=== PATIENT | male | born 1980 | race Caucasian/White ===

== ENCOUNTER 2017-02-01 08:06 | Emergency (ER) | payer OTHER ==
[2017-02-01 08:11] VITALS: BP 137/82; BMI 27.2
--- NOTE | 2017-02-01 08:47 | DR.GENAD ---
HPI - PCP Primary Care Physician: NFD - Complaint/Symptoms Chief Complaint:: "Since about Wednesday I have been feeling really sick. I have been throwing up and running a fever. I have been taking motrin and asprin for the fever, but I am still feeling really rough. I tried to go to work this morning but I had to leave." - Source History Provided: Patient - Mode of Arrival Mode of Arrival: Ambulatory - Timing Onset of Chief Complaint: 01/29/17 PMH - PMH Past Medical History: No Past Surgical History: No - Family History History of Family Medical Conditions: No - Social History Does patient currently use any type of tobacco product: Yes Have you used tobacco products in the last 12 months: Yes Type of Tobacco Use: Cigarettes Does any household member use tobacco: Yes Alcohol Use: None Do you use any recreational Drugs:: No Lives With: Family Lives Where: Home - infectious screening In the last 2 months have you had wt loss of >10#?: NO Have you had fever, night sweats or hemotysis?: No Have you traveled outside the country in the last 6 months?: No Isolation: Standard ROS - Review of Systems Constitutional: No Symptoms Reported Eyes: No Symptoms Reported ENTM: No Symptoms Reported Respiratoy: No Symptoms Reported Cardiovascular: No Symptoms Reported Gastrointestinal/Abdominal: No Symptoms Reported Genitourinary: No Symptoms Reported Neurological: No Symptoms Reported Musculoskeletal: Muscle Pain Hematologic/Lymphatic: No Symptoms Reported Endocrine: No Symptoms Reported Psychiatric: No Symptoms Reported All Other Systems: Reviewed and Negative PE - Vital Signs Vitals: Temperature 98.2 F Pulse Rate 83 Respiratory Rate 18 Blood Pressure 137/82 O2 Sat by Pulse Oximetry 98 - General Limitations: No Limitations General Appearance: Alert, In No Apparent Distress - Head Head Exam: Normal Inspection, Atraumatic - Eyes Eye exam: Normal Appearance, PERRL, EOMI - ENT ENT Exam: Normal Oropharynx External Ear Exam: Normal External Inspection TM/Canal Exam: Bilateral Normal Nose Exam: Other (rhinorrhea) Mouth Exam: Normal Inspection Throat Exam: Normal Inspection - Neck Neck Exam: Normal Inspection - Chest Chest Inspection: Normal Inspection - Respiratory Respiratory Exam: Normal Lung Sounds Bilat Respiratory Exam: Bilateral Clear to Auscultation - Cardiovascular Cardiovascular Exam: Regular Rate, Normal Rhythm - Abdominal Exam Abdominal Exam: Normal Inspection, Normal Bowel Sounds Abdominal Tenderness: negative: RUQ, RLQ, LUQ, LLQ, Epigastrium, Suprapubic, Diffuse, Mild, Moderate, Severe, Other - Extremities Extremities Exam: Normal Inspection - Back Back Exam: Normal Inspection - Neurologic Neurological Exam: Alert, Oriented X3, CN II-XII Intact - Psychiatric Psychiatric Exam: Normal Affect - Skin Skin Exam: Warm, Dry, Intact - Other Exam Other Exam: Remainder of exam wnl - Diagnosis Discharge Problem: Upper respiratory infection Qualifiers: URI type: unspecified viral URI Qualified Code(s): J06.9 - Acute upper respiratory infection, unspecified; B97.89 - Other viral agents as the cause of diseases classified elsewhere - Discharge Plan Condition: Stable - Follow ups/Referrals Follow ups/Referrals: NFD,None [Primary Care Provider] - 3 days - Instructions
[2017-02-01] MEDS ORDERED: TORADOL 60 MG VIAL IM ONE (08:51)
[2017-02-01] MEDS ORDERED: ZOFRAN TAB 4 MG PO ONE (08:52)
[2017-02-01] MEDS ORDERED: TORADOL 60 MG VIAL ONE (08:53)
[2017-02-01] MEDS ORDERED: ZOFRAN TAB 4 MG ONE (08:54)
== END 2017-02-01 09:05 | disposition home or self-care (01) ==
LOC: ER 08:26
DX: J06.9 Acute upper respiratory infection, unspecified (principal); B97.89 Other viral agents as the cause of diseases classified elsewhere
CPT/HCPCS: 96372; 99282; S0181; J1885

== ENCOUNTER 2017-07-27 07:43 | Emergency (ER) | payer OTHER ==
[2017-07-27 08:00] VITALS: BP 129/88; BMI 29.0
--- NOTE | 2017-07-27 08:31 | DR.EXTPAIN ---
HPI - Time seen Time seen: 08:20 - PCP Primary Care Physician: NFD - Complaint/Symptoms Chief Complaint Doctor Comments: Patient presents with complint of right hip pain that has been ongoing for several months. He denies trauma or history of arthritis. He also complains of dyspnea, was told that he has COPD, has not smoked in a few years. He does admits to having a PFT done in the past. He uses albeteral as needed. Has not used in several weeks. 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 Chief Complaint:: PT STATES MY RIGHT HP HURTS EVERYDAY AND I HAVE BEEN SOB AND A DOCTOR IN [place] TOLD ME I HAVE COPD.. Self Treatment fo Chief Complaint: PT STATES " MY HIP HURTS EVERY DAY FOR MONTHS " PT APPEARS TO BE IN NO DISTRESS. - Source History Provided: Patient - Mode of arrival Mode of Arrival: Ambulatory - Timing Onset of Chief Complaint: 07/13/17 PMH - PMH Past Medical History: Yes Past Medical History: COPD Past Surgical History: No - Family History History of Family Medical Conditions: Yes Family Medical History: Hypertension - Social History Does patient currently use any type of tobacco product: Yes Have you used tobacco products in the last 12 months: Yes Type of Tobacco Use: Cigarettes How many years tobacco product used: 8 Does any household member use tobacco: No Alcohol Use: None Do you use any recreational Drugs:: No Lives With: Family Lives Where: Home - infectious screening In the last 2 months have you had wt loss of >10#?: NO Have you had fever, night sweats or hemotysis?: No Have you traveled outside the country in the last 6 months?: No Isolation: Standard ROS - Review of Systems Eyes: No Symptoms Reported ENTM: No Symptoms Reported Respiratoy: Short of Breath Cardiovascular: No Symptoms Reported Gastrointestinal/Abdominal: No Symptoms Reported Genitourinary: No Symptoms Reported Neurological: No Symptoms Reported Musculoskeletal: See HPI, Hip Integumentary: No Symptoms Reported Hematologic/Lymphatic: No Symptoms Reported Endocrine: No Symptoms Reported Psychiatric: No Symptoms Reported All Other Systems: Reviewed and Negative PE - Vital Signs Vitals: Temperature 97.7 F Pulse Rate 82 Respiratory Rate 20 Blood Pressure 129/88 O2 Sat by Pulse Oximetry 99 - General Limitations: No Limitations General Appearance: Alert, In No Apparent Distress - Head Head Exam: Normal Inspection, Atraumatic - Eyes Eye exam: Normal Appearance, PERRL, EOMI - ENT ENT Exam: Normal Exam - Neck Neck Exam: Normal Inspection, Full ROM - Chest Chest Inspection: Normal Inspection, Symmetric Chest Wall Rise - Respiratory Respiratory Exam: Normal Lung Sounds Bilat Respiratory Exam: Bilateral Clear to Auscultation - Cardiovascular Cardiovascular Exam: Regular Rate, Normal Rhythm - Abdominal Exam Abdominal Exam: Normal Inspection, Normal Bowel Sounds Abdominal Tenderness: RUQ, RLQ, LUQ, LLQ - Extremities Extremities Exam: Normal Inspection, Full ROM - Upper Extremities Shoulder Exam: Normal Inspection Arm Exam: Normal Inspection Elbow Exam: Normal Inspection Forearm Exam: Normal Inspection Hand Exam: Normal Inspection Neuromotor Exam: Normal Exam Neurosensory Exam: Normal Exam Hand Tendon Exam: Flexor Digitorium Profundus (Location) - Lower Extremities Hip/Pelvis Exam: Normal Inspection, Tenderness (right hip joint with flexion ASIS) Upper Leg Exam: Normal Inspection Knee Exam: Normal Inspection Lower Leg Exam: Normal Inspection Ankle Exam: Normal Inspection Foot/Toe Exam: Normal Inspection Neurovascular/Tendon Exam: Normal Capillary Refill Gait Exam: Observed and Normal, Not Tested/Not Observed - Back Back Exam: Normal Inspection, Full ROM - Neurological Neurological Exam: Alert, Oriented X3, CN II-XII Intact - Psychiatric Psychiatric Exam: Normal Affect, Normal Mood - Skin Skin Exam: Warm, Dry, Intact Type of Lesion: Rash Distribution: Generalized Course - Reevaluation 1st: Unchanged ROR - Labs Reviewed Result Diagrams: 07/27/17 08:33 Laboratory: WBC 7.5 X10^3/uL (3.6-10.0) 07/27/17 08:33 RBC 4.91 X10^6/uL (4.7-6.0) 07/27/17 08:33 Hgb 15.8 g/dL (13.5-18.0) 07/27/17 08:33 Hct 45.4 % (42.0-54.0) 07/27/17 08:33 MCV 92.4 fL (80.0-100.0) 07/27/17 08:33 MCH 32.1 pg (27.0-34.0) 07/27/17 08:33 MCHC 34.8 g/dL (33.0-35.0) 07/27/17 08:33 RDW 13.9 % (11.6-16.5) 07/27/17 08:33 Plt Count 277 X10^3/uL (150.0-450.0) 07/27/17 08:33 MPV 7.7 fL (7.4-11.0) 07/27/17 08:33 Neut % (Auto) 50.7 % (42.0-75.0) 07/27/17 08:33 Lymph % (Auto) 37.9 % (21.0-51.0) 07/27/17 08:33 [place] % (Auto) 6.8 % (0.0-13.0) 07/27/17 08:33 Eos % (Auto) 3.1 % (0.9-2.9) H 07/27/17 08:33 Baso % (Auto) 1.5 % (0.2-1.0) H 07/27/17 08:33 Neut # (Auto) 3.8 x10^3/uL (2.2-4.8) 07/27/17 08:33 Lymph # (Auto) 2.8 X10^3/uL (1.3-2.9) 07/27/17 08:33 [place] # (Auto) 0.5 x10^3/uL (0.3-0.8) 07/27/17 08:33 Eos # (Auto) 0.2 x10^3/uL (0.0-0.2) 07/27/17 08:33 Baso # (Auto) 0.1 X10^3/uL (0.0-0.1) 07/27/17 08:33 Absolute Nucleated RBC 0.1 /100WBC 07/27/17 08:33 C-Reactive Protein 1.60 mg/L (0-3.0) 07/27/17 08:33 - XRAY XRAY Interpreted by: Radiologist (Chest: The heart is within normal limits in size. The bev are normal. The lungs are well inflated and free of acute infiltrates. No pleural effusions are identified. The bony thorax is unremarkable. Right Hip: The pelvic bones and SI joints are intact. The right hip joint is intact. No joint erosions are noted. No fracture,lytic or blastic lesion is identified.) - Diagnosis Discharge Problem: History of COPD, Pain of right hip - Discharge Plan Condition: Stable - Follow ups/Referrals Follow ups/Referrals: NFD,None [Primary Care Provider] - 3 days - Instructions
[2017-07-27 08:40] LABS: BASOPHILS # (AUTO) 0.1 X10^3/uL (0.0-0.1); BASOPHILS % (AUTO) 1.5 % (0.2-1.0); EOSINOPHILS # (AUTO) 0.2 x10^3/uL (0.0-0.2); EOSINOPHILS % (AUTO) 3.1 % (0.9-2.9); HEMATOCRIT 45.4 % (42.0-54.0); HEMOGLOBIN 15.8 g/dL (13.5-18.0); LYMPHOCYTES # (AUTO) 2.8 X10^3/uL (1.3-2.9); LYMPHOCYTES % (AUTO) 37.9 % (21.0-51.0); MEAN CORPUSCULAR HEMOGLOBIN 32.1 pg (27.0-34.0); MEAN CORPUSCULAR HGB CONC 34.8 g/dL (33.0-35.0); MEAN CORPUSCULAR VOLUME 92.4 fL (80.0-100.0); MEAN PLATELET VOLUME 7.7 fL (7.4-11.0); MONOCYTES # (AUTO) 0.5 x10^3/uL (0.3-0.8); MONOCYTES % (AUTO) 6.8 % (0.0-13.0); NEUTROPHILS # (AUTO) 3.8 x10^3/uL (2.2-4.8); NEUTROPHILS % (AUTO) 50.7 % (42.0-75.0); PLATELET COUNT 277 X10^3/uL (150.0-450.0); RED BLOOD COUNT 4.91 X10^6/uL (4.7-6.0); RED CELL DISTRIBUTION WIDTH 13.9 % (11.6-16.5); WHITE BLOOD COUNT 7.5 X10^3/uL (3.6-10.0)
--- NOTE | 2017-07-27 08:50 | RAD ---
HISTORY: Nontraumatic right hip pain Study: Right hip AP, frog-leg, AP pelvis Comparison: None Findings: The pelvic bones and SI joints are intact. The right hip joint is intact. No joint erosions are noted . No fracture, lytic, or blastic lesion is identified. IMPRESSION: No significant abnormality right hip Reported By:
--- NOTE | 2017-07-27 08:53 | RAD ---
HISTORY: Chest pain, shortness of breath Study: Chest PA and lateral Comparison: None Findings: The heart is within normal limits in size. The bev are normal. The lungs are well inflated and free of acute infiltrates. No pleural effusions are identified. The bony thorax is unremarkable. IMPRESSION: No significant abnormality identified Reported By:
== END 2017-07-27 09:14 | disposition home or self-care (01) ==
LOC: ER 08:01
DX: M25.551 Pain in right hip (principal); Z87.09 Personal history of other diseases of the respiratory system
CPT/HCPCS: 36415; 71046; 73501; 85025; 86140; 99282

== ENCOUNTER 2019-04-26 14:01 | Inpatient (IN) ==
[2019-04-26 14:30] VITALS: BMI 29.4
[2019-04-26 17:52] LABS: BASOPHILS # (AUTO) 0.1 X10^3/uL (0.0-0.1); EOSINOPHILS # (AUTO) 0.1 x10^3/uL (0.0-0.2); EOSINOPHILS % (AUTO) 0.6 % (0.9-2.9); HEMATOCRIT 46.1 % (42.0-54.0); HEMOGLOBIN 15.5 g/dL (13.5-18.0); LYMPHOCYTES # (AUTO) 2.3 X10^3/uL (1.3-2.9); LYMPHOCYTES % (AUTO) 17.1 % (21.0-51.0); MEAN CORPUSCULAR HEMOGLOBIN 31.9 pg (27.0-34.0); MEAN CORPUSCULAR HGB CONC 33.7 g/dL (33.0-35.0); MEAN CORPUSCULAR VOLUME 94.5 fL (80.0-100.0); MONOCYTES # (AUTO) 0.9 x10^3/uL (0.3-0.8); MONOCYTES % (AUTO) 6.7 % (0.0-13.0); NEUTROPHILS # (AUTO) 9.9 x10^3/uL (2.2-4.8); NEUTROPHILS % (AUTO) 74.6 % (42.0-75.0); PLATELET COUNT 245 X10^3/uL (150.0-450.0); RED BLOOD COUNT 4.88 X10^6/uL (4.7-6.0); RED CELL DISTRIBUTION WIDTH 13.1 % (11.6-16.5); WHITE BLOOD COUNT 13.2 X10^3/uL (3.6-10.0)
[2019-04-26 18:06] LABS: ALANINE AMINOTRANSFERASE 27 Units/L (12-78); ALKALINE PHOSPHATASE 83 Units/L (46-116); ASPARTATE AMINO TRANSFERASE 15 Units/L (15-37); BLOOD UREA NITROGEN 19 mg/dL (7-18); CALCIUM 8.8 mg/dL (8.5-10.1); CARBON DIOXIDE 29.4 mmol/L (21-32); CHLORIDE 103 mmol/L (98-107); CREATININE 1.19 mg/dL (0.70-1.30); SODIUM 140 mmol/L (136-145); eGFR NON BLACK RACES > 60 (>60)
--- NOTE | 2019-04-26 19:59 | CT ---
ABDOMEN/PELVIS WITH CONHISTORY: Diffuse abdominal painComparison:NoneTechnique:Multiple axial images of the abdomen and pelvis were obtained from the lung bases to the pubic symphysis following the administration of IV contrast as well as oral contrast . Dose reduction techniques including Automated Exposure Control (AEC) and adjustment of mA and kV were utlized.Findings:The heart is normal in size. There is no pericardial effusion. Lung bases are clear without focal consolidation, pleural effusion or pneumothorax.Liver and spleen are normal in size, enhancement characteristics and contour. No focal lesions. The portal vein is patent. No ductal dilitation. Gallbladder is present. No calcified gallstones or gallbladder wall thickening. The pancreas is unremarkable. Adrenal glands are normal. Kidneys enhance symmetrically without hydronephrosis or nephrolithiasis.Focal formation of the descending colon with extraluminal air and extensive fat stranding. Best seen on series for image 57. There are scattered diverticula in this region. No abnormal appearing mesenteric or retroperitoneal lymph nodes. . No free fluid or fluid collections.The bladder is normal in appearance. Prostate unremarkable. No free fluid or abnormal pelvic lymph nodes.No aggressive osseous lesions.IMPRESSION:1. Acute diverticulitis with contained perforation of the descending colon. Recommend surgical consultation.Electronically signed by: CORINNE EASTMAN (Apr 26, 2019 19:58:16)
[2019-04-26] MEDS ORDERED: FIORICET TAB PO ONE ×2 (20:02→20:09)
--- NOTE | 2019-04-26 20:03 | DR.ABDMALE ---
HPI Time seen Time Seen by Provider: 04/26/19 17:13 PCP Primary Care Physician: NFD Complaint Chief Complaint Doctors Comments: A 38 y/o with LLQ abdominal pain since yesterday. It just hurts, he states. He's not had nausea/vomiting or fever. The pain is constant mostly with exacerbation sometimes. Chief Complaint:: STATES HE IS HAVING LOWER ABDOMINAL PAIN THAT GOES ALL THE WAY ACROSS HIS ABDOMEN. STATES HE HAD A FEVER LAST NIGHT UNSURE OF HOW HIGH. STATES HE HAS BEEN HAVING HEADACHES. STATES HE BLOOD IN HIS STOOL LAST MONTH. Self Treatment fo Chief Complaint: TYLENOL 2 TABS LAST DOSE THIS AM. Reviewed Nurses Notes Review: Yes Mode of arrival Mode of Arrival: Ambulatory Timing Onset of Chief Complaint: 04/25/19 Location Location: LLQ Severity Severity: Mild and Moderate Context Onset: Gradually Modifying factors Worsening Factors: Nothing Associated signs and symptoms Associated Signs and Symptoms: None PMH PMH Past Medical History: No Past Medical History: COPD Past Surgical History: No Family History History of Family Medical Conditions: Yes Family Medical History: Hypertension Social History Does patient currently use any type of tobacco product: Yes Have you used tobacco products in the last 12 months: Yes Type of Tobacco Use: Cigarettes Does any household member use tobacco: No Alcohol Use: None Do you use any recreational Drugs:: No Lives With: Family and Significant Other Lives Where: Home infectious screening In the last 2 months have you had wt loss of >10#?: NO Have you had fever, night sweats or hemotysis?: No Have you traveled outside the country in the last 6 months?: No Isolation: Standard ROS Review of Systems Constitutional: No Symptoms Reported Eyes: No Symptoms Reported ENTM: No Symptoms Reported Respiratoy: No Symptoms Reported Cardiovascular: No Symptoms Reported Gastrointestinal/Abdominal: Abdominal Pain Genitourinary: No Symptoms Reported Neurological: No Symptoms Reported Musculoskeletal: No Symptoms Reported Integumentary: No Symptoms Reported Hematologic/Lymphatic: No Symptoms Reported Endocrine: No Symptoms Reported Psychiatric: No Symptoms Reported PE Vital Signs Vital Signs: Temp Pulse Resp BP Pulse Ox 04/26/19 20:11 18 04/26/19 14:24 99.1 F 100 H 18 137/80 97 07/27/17 07:56 129/88 General Limitations: No Limitations General Appearance: Alert and In No Apparent Distress Head Head Exam: Normal Inspection and Atraumatic Eyes Eye exam: Normal Appearance and EOMI ENT ENT Exam: Normal Exam, Normal Oropharynx and Mucous Membranes Moist Neck Neck Exam: Normal Inspection, Full ROM and Trachea Midline Chest Chest Inspection: Normal Inspection and Symmetric Chest Wall Rise Respiratory Respiratory Exam: Normal Lung Sounds Bilat Cardiovascular Cardiovascular Exam: Regular Rate, Normal Rhythm, +S1 and +S2 Abdominal Exam Abdominal Exam: Normal Inspection, Normal Bowel Sounds, Soft and Tenderness; negative Distention, Guarding, Rebound, Rigidity, Dimnished Bowel Sounds, Hyperactive Bowel Sounds, Hypoactive Bowel Sounds, Organomegaly, Trauma, Incision, Ascites, Mass, Bruit, Pulsatile Mass and Hernia Abdominal Tenderness: LLQ Rectal Rectal Exam: Deferred Back Back Exam: Normal Inspection and Full ROM Extremeties Extremities Exam: Normal Inspection and Full ROM Exam: Male: Deferred Neurologic Neurological Exam: Alert and Oriented X3 Psychiatric Psychiatric Exam: Normal Affect and Normal Mood Skin Skin Exam: Dry and Normal Color COURSE Treatment Treatment: His presentation and findings were discussed with Dr. Vides (surgeon), he recommended placing into Obs. status. I then informed the on-call hospitalist. Reevaluation 1st: Improved Education/Counseling Education/Counseling: Patient, Family, Education and Counseling Educated On: Treatment, Diagnosis, Prognosis and Needs for Follow Up ROR Labs Reviewed Laboratory Results Reviewed?: Yes Result Diagrams: 04/26/19 17:32 04/26/19 17:32 Laboratory: WBC 13.2 X10^3/uL (3.6-10.0) H 04/26/19 17:32 RBC 4.88 X10^6/uL (4.7-6.0) 04/26/19 17:32 Hgb 15.5 g/dL (13.5-18.0) 04/26/19 17:32 Hct 46.1 % (42.0-54.0) 04/26/19 17:32 MCV 94.5 fL (80.0-100.0) 04/26/19 17:32 MCH 31.9 pg (27.0-34.0) 04/26/19 17:32 MCHC 33.7 g/dL (33.0-35.0) 04/26/19 17:32 RDW 13.1 % (11.6-16.5) 04/26/19 17:32 Plt Count 245 X10^3/uL (150.0-450.0) 04/26/19 17:32 MPV 8.0 fL (7.4-11.0) 04/26/19 17:32 Neut % (Auto) 74.6 % (42.0-75.0) 04/26/19 17:32 Lymph % (Auto) 17.1 % (21.0-51.0) L 04/26/19 17:32 [place] % (Auto) 6.7 % (0.0-13.0) 04/26/19 17:32 Eos % (Auto) 0.6 % (0.9-2.9) L 04/26/19 17:32 Baso % (Auto) 1.0 % (0.2-1.0) 04/26/19 17:32 Neut # (Auto) 9.9 x10^3/uL (2.2-4.8) H 04/26/19 17:32 Lymph # (Auto) 2.3 X10^3/uL (1.3-2.9) 04/26/19 17:32 [place] # (Auto) 0.9 x10^3/uL (0.3-0.8) H 04/26/19 17:32 Eos # (Auto) 0.1 x10^3/uL (0.0-0.2) 04/26/19 17:32 Baso # (Auto) 0.1 X10^3/uL (0.0-0.1) 04/26/19 17:32 Absolute Nucleated RBC 0.0 /100WBC 04/26/19 17:32 Sodium 140 mmol/L (136-145) 04/26/19 17:32 Corrected Sodium TNP 04/26/19 17:32 Potassium 4.1 mmol/L (3.5-5.1) 04/26/19 17:32 Chloride 103 mmol/L (98-107) 04/26/19 17:32 Carbon Dioxide 29.4 mmol/L (21-32) 04/26/19 17:32 BUN 19 mg/dL (7-18) H 04/26/19 17:32 Creatinine 1.19 mg/dL (0.70-1.30) 04/26/19 17:32 Est GFR (MDRD) Af Amer > 60 (>60) 04/26/19 17:32 Est GFR (MDRD) Non-Af > 60 (>60) 04/26/19 17:32 Glucose 95 mg/dL (65-99) 04/26/19 17:32 Calcium 8.8 mg/dL (8.5-10.1) 04/26/19 17:32 Corrected Calcium TNP 04/26/19 17:32 Total Bilirubin 0.70 mg/dL (0.2-1.0) 04/26/19 17:32 AST 15 Units/L (15-37) 04/26/19 17:32 ALT 27 Units/L (12-78) 04/26/19 17:32 Alkaline Phosphatase 83 Units/L (46-116) 04/26/19 17:32 Total Protein 8.0 g/dL (6.4-8.2) 04/26/19 17:32 Albumin 4.0 g/dL (3.4-5.0) 04/26/19 17:32 Globulin 4.0 g/dL (2.5-4.5) 04/26/19 17:32 Albumin/Globulin Ratio 1.0 Ratio (1.1-2.1) L 04/26/19 17:32 Other Results Comments: Name: CATRINA PRUITT Acc#: [id number] : 1980 Sex: M Location: ER Order Number(s): [id number] Procedure(s):ABDOMEN/PELVIS WITH CON Ordering Physician: SWATHI MANZANARES Primary Care: NFDGinger Service Date: 04/26/19 Service Time: 1715 ABDOMEN/PELVIS WITH CON HISTORY: Diffuse abdominal pain Comparison:None Technique: Multiple axial images of the abdomen and pelvis were obtained from the lung bases to the pubic symphysis following the administration of IV contrast as well as oral contrast . Dose reduction techniques including Automated Exposure Control (AEC) and adjustment of mA and kV were utlized. Findings: The heart is normal in size. There is no pericardial effusion. Lung bases are clear without focal consolidation, pleural effusion or pneumothorax. Liver and spleen are normal in size, enhancement characteristics and contour. No focal lesions. The portal vein is patent. No ductal dilitation. Gallbladder is present. No calcified gallstones or gallbladder wall thickening. The pancreas is unremarkable. Adrenal glands are normal. Kidneys enhance symmetrically without hydronephrosis or nephrolithiasis. Focal formation of the descending colon with extraluminal air and extensive fat stranding. Best seen on series for image 57. There are scattered diverticula in this region. No abnormal appearing mesenteric or retroperitoneal lymph nodes. . No free fluid or fluid collections. The bladder is normal in appearance. Prostate unremarkable. No free fluid or abnormal pelvic lymph nodes. No aggressive osseous lesions. IMPRESSION: 1. Acute diverticulitis with contained perforation of the descending colon. Recommend surgical consultation. Opioid Opioid Risk Tool Age (Raza box if 16-45): Yes Total: 1 Total Score Risk Category: Low Risk Copyright: [facility] predicting aberrant behaviors Diagnosis Discharge Problem: Diverticulitis of colon with perforation Qualifiers: Diverticulitis bleeding: without bleeding Qualified Code(s): K57.20 - Divert iculitis of large intestine with perforation and abscess without bleeding Headache Qualifiers: Headache type: unspecified Headache chronicity pattern: acute headache Intractability: not intractable Qualified Code(s): R51 - Headache
[2019-04-26] MEDS ORDERED: ZOFRAN INJ 4 MG VIAL IVP PRN (20:49)
[2019-04-26] MEDS ORDERED: FLAGYL IV PREMIX 500 MG BAG 500 MG/100 ML BAG IV SCH (21:00)
[2019-04-26] MEDS ORDERED: NS 1000 ML 1,000 ML ONE (21:07)
[2019-04-26] MEDS ORDERED: CIPRO IV 400 MG PREMIX* 400 MG/200 ML IV.SOLN. IV ONE (21:07)
[2019-04-26] MEDS: CIPRO IV 400 MG PREMIX* 400 MG/200 ML IV.SOLN. IV SCH (21:16)
[2019-04-26] MEDS ORDERED: NS 1000 ML 1,000 ML IV ONE (21:17)
[2019-04-26] MEDS: NS 1000 ML 1,000 ML IV SCH (21:17)
[2019-04-26] MEDS ORDERED: PREVNAR 13 IM ONE (22:31)
[2019-04-26] MEDS: FLAGYL IV PREMIX 500 MG BAG 500 MG/100 ML BAG IV SCH (23:06)
[2019-04-26] MEDS: MORPHINE SULFATE INJ 2 MG INJ IVP PRN (23:36)
[2019-04-27] MEDS: NS 1000 ML 1,000 ML IV SCH (05:56)
[2019-04-27 05:57] LABS: BASOPHILS # (AUTO) 0.1 X10^3/uL (0.0-0.1); BASOPHILS % (AUTO) 0.7 % (0.2-1.0); EOSINOPHILS # (AUTO) 0.1 x10^3/uL (0.0-0.2); EOSINOPHILS % (AUTO) 0.6 % (0.9-2.9); HEMATOCRIT 40.5 % (42.0-54.0); HEMOGLOBIN 13.8 g/dL (13.5-18.0); LYMPHOCYTES # (AUTO) 1.7 X10^3/uL (1.3-2.9); LYMPHOCYTES % (AUTO) 14.8 % (21.0-51.0); MONOCYTES # (AUTO) 0.8 x10^3/uL (0.3-0.8); MONOCYTES % (AUTO) 6.8 % (0.0-13.0); NEUTROPHILS # (AUTO) 8.8 x10^3/uL (2.2-4.8); NEUTROPHILS % (AUTO) 77.1 % (42.0-75.0); PLATELET COUNT 212 X10^3/uL (150.0-450.0); RED BLOOD COUNT 4.31 X10^6/uL (4.7-6.0); WHITE BLOOD COUNT 11.4 X10^3/uL (3.6-10.0)
[2019-04-27 06:09] LABS: ALANINE AMINOTRANSFERASE 21 Units/L (12-78); ALBUMIN 3.2 g/dL (3.4-5.0); ALKALINE PHOSPHATASE 71 Units/L (46-116); ASPARTATE AMINO TRANSFERASE 12 Units/L (15-37); BLOOD UREA NITROGEN 12 mg/dL (7-18); CALCIUM 8.2 mg/dL (8.5-10.1); CARBON DIOXIDE 26.8 mmol/L (21-32); CHLORIDE 104 mmol/L (98-107); COR CA(FOR HYPOALB) 8.8 mg/dL (8.5-10.1); CREATININE 1.26 mg/dL (0.70-1.30); SODIUM 139 mmol/L (136-145); TOTAL PROTEIN 6.8 g/dL (6.4-8.2); eGFR NON BLACK RACES > 60 (>60)
[2019-04-27] MEDS: MORPHINE SULFATE INJ 2 MG INJ IVP PRN ×3 (06:30→20:22)
[2019-04-27 06:32] LABS: BILIRUBIN,URINE NEGATIVE (NEGATIVE); BLOOD/HEMOGLOBIN,URINE 2+ (NEGATIVE); GLUCOSE, URINE NEGATIVE (NEGATIVE); KETONES,URINE 3+ (NEGATIVE); LEUKOCYTE ESTERASE ,URINE NEGATIVE (NEGATIVE); NITRITES,URINE NEGATIVE (NEGATIVE); PROTEIN,URINE 2+ (NEGATIVE); UROBILINOGEN,URINE 2+ (NORMAL)
[2019-04-27 06:36] LABS: APPEARANCE,URINE HAZY (CLEAR); COLOR,URINE YELLOW (YELLOW)
[2019-04-27] MEDS: FLAGYL IV PREMIX 500 MG BAG 500 MG/100 ML BAG IV SCH ×3 (06:36→21:41)
[2019-04-27 06:37] LABS: BACTERIA,URINE NEGATIVE /HPF (NEGATIVE); MUCUS,URINE FEW /HPF (NEGATIVE); RBC,URINE 0-2 /HPF (0-3); SQUAMOUS EPITHELIAL CELL,UR NEGATIVE /HPF (NEGATIVE)
--- NOTE | 2019-04-27 08:26 | DR.H&P ---
H&P History & Physical for Day of: H&P Date: 04/27/19 Chief Complaint Chief Complaint: abdominal pain Allergies Allergies Allergy/AdvReac Type Severity Reaction Status Date / Time penicillin G Allergy Verified 07/27/17 07:56 History of Present Illness History of Present Illness: Mr. Fowler is a 38y/o male with no pertinent PMH presented yesterday with diffuse abdominal pain that started Jorge night. He states the pain started in the LLQ and then spread across. He denies N/V or fever. He had some diarrhea yesterday after the contrast but has resolved. He has no hx of any abdominal surgeries. No prev hx of diverticulosis. ER work-up - CTAP: acute diverticulitis with contained perforation of descending colon, surgery consult pending Past Medical History Past Medical History: COPD Additional Medical History: Tobacco use Past Surgical History Surgical History: No History Family History Family Medical History: Diabetes Mellitus and Hypertension Social History Does patient currently use any type of tobacco product: Yes Have you used tobacco products in the last 12 months: Yes Type of Tobacco Use: None How many years tobacco product used: 10 Does any household member use tobacco: No Alcohol Use: None Drug Use: None Medications Home Medications: penicillin G Allergy (Verified 07/27/17 07:56) CONTINUE taking the following medications NK 04/26/19 [History] Labs Result Diagrams: 04/27/19 05:38 04/27/19 05:38 Labs: Laboratory WBC 11.4 X10^3/uL (3.6-10.0) H 04/27/19 05:38 RBC 4.31 X10^6/uL (4.7-6.0) L 04/27/19 05:38 Hgb 13.8 g/dL (13.5-18.0) 04/27/19 05:38 Hct 40.5 % (42.0-54.0) L 04/27/19 05:38 MCV 94.0 fL (80.0-100.0) 04/27/19 05:38 MCH 32.0 pg (27.0-34.0) 04/27/19 05:38 MCHC 34.0 g/dL (33.0-35.0) 04/27/19 05:38 RDW 13.0 % (11.6-16.5) 04/27/19 05:38 Plt Count 212 X10^3/uL (150.0-450.0) 04/27/19 05:38 MPV 8.0 fL (7.4-11.0) 04/27/19 05:38 Neut % (Auto) 77.1 % (42.0-75.0) H 04/27/19 05:38 Lymph % (Auto) 14.8 % (21.0-51.0) L 04/27/19 05:38 [place] % (Auto) 6.8 % (0.0-13.0) 04/27/19 05:38 Eos % (Auto) 0.6 % (0.9-2.9) L 04/27/19 05:38 Baso % (Auto) 0.7 % (0.2-1.0) 04/27/19 05:38 Neut # (Auto) 8.8 x10^3/uL (2.2-4.8) H 04/27/19 05:38 Lymph # (Auto) 1.7 X10^3/uL (1.3-2.9) 04/27/19 05:38 [place] # (Auto) 0.8 x10^3/uL (0.3-0.8) 04/27/19 05:38 Eos # (Auto) 0.1 x10^3/uL (0.0-0.2) 04/27/19 05:38 Baso # (Auto) 0.1 X10^3/uL (0.0-0.1) 04/27/19 05:38 Absolute Nucleated RBC 0.0 /100WBC 04/27/19 05:38 Sodium 139 mmol/L (136-145) 04/27/19 05:38 Corrected Sodium TNP 04/27/19 05:38 Potassium 3.6 mmol/L (3.5-5.1) 04/27/19 05:38 Chloride 104 mmol/L (98-107) 04/27/19 05:38 Carbon Dioxide 26.8 mmol/L (21-32) 04/27/19 05:38 BUN 12 mg/dL (7-18) 04/27/19 05:38 Creatinine 1.26 mg/dL (0.70-1.30) 04/27/19 05:38 Est GFR (MDRD) Af Amer > 60 (>60) 04/27/19 05:38 Est GFR (MDRD) Non-Af > 60 (>60) 04/27/19 05:38 Glucose 104 mg/dL (65-99) H 04/27/19 05:38 Calcium 8.2 mg/dL (8.5-10.1) L 04/27/19 05:38 Corrected Calcium 8.8 mg/dL (8.5-10.1) 04/27/19 05:38 Total Bilirubin 0.90 mg/dL (0.2-1.0) 04/27/19 05:38 AST 12 Units/L (15-37) L 04/27/19 05:38 ALT 21 Units/L (12-78) 04/27/19 05:38 Alkaline Phosphatase 71 Units/L (46-116) 04/27/19 05:38 Total Protein 6.8 g/dL (6.4-8.2) 04/27/19 05:38 Albumin 3.2 g/dL (3.4-5.0) L 04/27/19 05:38 Globulin 3.6 g/dL (2.5-4.5) 04/27/19 05:38 Albumin/Globulin Ratio 0.9 Ratio (1.1-2.1) L 04/27/19 05:38 Specimen Type Clean catch urine 04/27/19 06:00 Urine Color Yellow (YELLOW) 04/27/19 06:00 Urine Appearance Hazy (CLEAR) 04/27/19 06:00 Urine pH 6.0 (5.0 - 8.0) 04/27/19 06:00 Ur Specific [place] 1.010 (1.000-1.030) 04/27/19 06:00 Urine Protein 2+ (NEGATIVE) 04/27/19 06:00 Urine Glucose (UA) Negative (NEGATIVE) 04/27/19 06:00 Urine Ketones 3+ (NEGATIVE) 04/27/19 06:00 Urine Occult Blood 2+ (NEGATIVE) 04/27/19 06:00 Urine Nitrite Negative (NEGATIVE) 04/27/19 06:00 Urine Bilirubin Negative (NEGATIVE) 04/27/19 06:00 Urine Urobilinogen 2+ (NORMAL) 04/27/19 06:00 Ur Leukocyte Esterase Negative (NEGATIVE) 04/27/19 06:00 Urine RBC 0-2 /HPF (0-3) 04/27/19 06:00 Urine WBC None seen /HPF (0-5) 04/27/19 06:00 Ur Squamous Epith Cells Negative /HPF (NEGATIVE) 04/27/19 06:00 Urine Bacteria Negative /HPF (NEGATIVE) 04/27/19 06:00 Urine Mucus Few /HPF (NEGATIVE) 04/27/19 06:00 Ur Culture Indicated? No/not indicated 04/27/19 06:00 Review of Systems Constitutional: No Symptoms Reported Eyes: No Symptoms Reported ENT: No Symptoms Reported Respiratory: No Symptoms Reported Cardiovascular: No Symptoms Reported Gastrointestinal: Abdominal Pain and Diarrhea; denies Nausea, Vomiting and Constipation Genitourinary: No Symptoms Reported Musculoskeletal: No Symptoms Reported Skin: No Symptoms Reported Neurological: No Symptoms Reported Physical Exam Vital Signs: Temperature 99 F Pulse Rate [Brachial] 101 Pulse Rate 100 Respiratory Rate 18 Blood Pressure [Right Arm] 117/56 Blood Pressure [Left Arm] 139/83 Blood Pressure 137/80 O2 Sat by Pulse Oximetry 96 Oriented: Normal Eyes: Normal Ear: Normal Nose: Normal Throat: Normal Respiratory: Clear Throughout Cardiovascular: Normal Auscultation: Bowel Sounds: Increased Tenderness: LLQ, Epigastric and Mild Skin: Normal Musculoskeletal: Normal Psychiatric: Normal Mood Description: Calm Affect: Normal Speech Pattern: Clear and Appropriate Assessment/Plan (1) Diverticulitis of colon with perforation: Qualifiers: Diverticulitis bleeding: without bleeding Qualified Code(s): K57.20 - Diverticulitis of large intestine with perforation and abscess without bleeding Narrative Support Text: CTAP: acute diverticulitis with contained perforation of descending colon. Status: Acute Plan: continue Cipro and Flagyl, IVF and pain control Surgery consult pending Continue NPO status Review H&P Reviewed: Yes Patient was examined?: Yes
[2019-04-27] MEDS: CIPRO IV 400 MG PREMIX* 400 MG/200 ML IV.SOLN. IV SCH (08:44)
--- NOTE | 2019-04-27 10:31 | DR.PROGNOT ---
Hospital Progress Notes - Progress Note for Day of: Progress Note Date: 04/27/19 - Chief Complaint Chief Complaint: abdominal pain is less this am . no nausea or vomiting . having low grade fever . WBC 11.4. BUN, Creatinin normal . - Past Medical Family Social History Past Med/Fam/Surg Hx: No changes since H&P Allergies: Allergies penicillin G Allergy (Verified 07/27/17 07:56) - Review Of Systems ROS: No change since H&P - Vital Signs Vital Signs: Temperature 99 F Pulse Rate [Brachial] 100 Pulse Rate 100 Respiratory Rate 18 Blood Pressure [Right Arm] 99/69 Blood Pressure [Left Arm] 139/83 Blood Pressure 137/80 O2 Sat by Pulse Oximetry 95 - Physical Exam Oriented: Normal Eyes: Normal Ear: Normal Nose: Normal Throat: Normal Cardiovascular: Normal GI:Auscultation: Decreased GI: Tenderness: LLQ, Moderate (soft abdomen with moderate LLQ tenderness with mild rebound . ) Skin: Normal Musculoskeletal: Normal Psychiatric: Normal Mood Description: Calm Affect: Normal Speech Pattern: Clear, Appropriate - Laboratory and Diagnostics Result Diagrams: 04/27/19 05:38 04/27/19 05:38 Labs: Laboratory WBC 11.4 X10^3/uL (3.6-10.0) H 04/27/19 05:38 RBC 4.31 X10^6/uL (4.7-6.0) L 04/27/19 05:38 Hgb 13.8 g/dL (13.5-18.0) 04/27/19 05:38 Hct 40.5 % (42.0-54.0) L 04/27/19 05:38 MCV 94.0 fL (80.0-100.0) 04/27/19 05:38 MCH 32.0 pg (27.0-34.0) 04/27/19 05:38 MCHC 34.0 g/dL (33.0-35.0) 04/27/19 05:38 RDW 13.0 % (11.6-16.5) 04/27/19 05:38 Plt Count 212 X10^3/uL (150.0-450.0) 04/27/19 05:38 MPV 8.0 fL (7.4-11.0) 04/27/19 05:38 Neut % (Auto) 77.1 % (42.0-75.0) H 04/27/19 05:38 Lymph % (Auto) 14.8 % (21.0-51.0) L 04/27/19 05:38 [place] % (Auto) 6.8 % (0.0-13.0) 04/27/19 05:38 Eos % (Auto) 0.6 % (0.9-2.9) L 04/27/19 05:38 Baso % (Auto) 0.7 % (0.2-1.0) 04/27/19 05:38 Neut # (Auto) 8.8 x10^3/uL (2.2-4.8) H 04/27/19 05:38 Lymph # (Auto) 1.7 X10^3/uL (1.3-2.9) 04/27/19 05:38 [place] # (Auto) 0.8 x10^3/uL (0.3-0.8) 04/27/19 05:38 Eos # (Auto) 0.1 x10^3/uL (0.0-0.2) 04/27/19 05:38 Baso # (Auto) 0.1 X10^3/uL (0.0-0.1) 04/27/19 05:38 Absolute Nucleated RBC 0.0 /100WBC 04/27/19 05:38 Sodium 139 mmol/L (136-145) 04/27/19 05:38 Corrected Sodium TNP 04/27/19 05:38 Potassium 3.6 mmol/L (3.5-5.1) 04/27/19 05:38 Chloride 104 mmol/L (98-107) 04/27/19 05:38 Carbon Dioxide 26.8 mmol/L (21-32) 04/27/19 05:38 BUN 12 mg/dL (7-18) 04/27/19 05:38 Creatinine 1.26 mg/dL (0.70-1.30) 04/27/19 05:38 Est GFR (MDRD) Af Amer > 60 (>60) 04/27/19 05:38 Est GFR (MDRD) Non-Af > 60 (>60) 04/27/19 05:38 Glucose 104 mg/dL (65-99) H 04/27/19 05:38 Calcium 8.2 mg/dL (8.5-10.1) L 04/27/19 05:38 Corrected Calcium 8.8 mg/dL (8.5-10.1) 04/27/19 05:38 Total Bilirubin 0.90 mg/dL (0.2-1.0) 04/27/19 05:38 AST 12 Units/L (15-37) L 04/27/19 05:38 ALT 21 Units/L (12-78) 04/27/19 05:38 Alkaline Phosphatase 71 Units/L (46-116) 04/27/19 05:38 Total Protein 6.8 g/dL (6.4-8.2) 04/27/19 05:38 Albumin 3.2 g/dL (3.4-5.0) L 04/27/19 05:38 Globulin 3.6 g/dL (2.5-4.5) 04/27/19 05:38 Albumin/Globulin Ratio 0.9 Ratio (1.1-2.1) L 04/27/19 05:38 Specimen Type Clean catch urine 04/27/19 06:00 Urine Color Yellow (YELLOW) 04/27/19 06:00 Urine Appearance Hazy (CLEAR) 04/27/19 06:00 Urine pH 6.0 (5.0 - 8.0) 04/27/19 06:00 Ur Specific [place] 1.010 (1.000-1.030) 04/27/19 06:00 Urine Protein 2+ (NEGATIVE) 04/27/19 06:00 Urine Glucose (UA) Negative (NEGATIVE) 04/27/19 06:00 Urine Ketones 3+ (NEGATIVE) 04/27/19 06:00 Urine Occult Blood 2+ (NEGATIVE) 04/27/19 06:00 Urine Nitrite Negative (NEGATIVE) 04/27/19 06:00 Urine Bilirubin Negative (NEGATIVE) 04/27/19 06:00 Urine Urobilinogen 2+ (NORMAL) 04/27/19 06:00 Ur Leukocyte Esterase Negative (NEGATIVE) 04/27/19 06:00 Urine RBC 0-2 /HPF (0-3) 04/27/19 06:00 Urine WBC None seen /HPF (0-5) 04/27/19 06:00 Ur Squamous Epith Cells Negative /HPF (NEGATIVE) 04/27/19 06:00 Urine Bacteria Negative /HPF (NEGATIVE) 04/27/19 06:00 Urine Mucus Few /HPF (NEGATIVE) 04/27/19 06:00 Ur Culture Indicated? No/not indicated 04/27/19 06:00 - Assessment and Plan 1: acute sigmoid diverticulitis with sealed perforation and localized peritonitis. to keep NPO , IV ATB and IVF and close observation . - Problem Patient Problems: Patient Problems Headache (Acute) R51 Diverticulitis of colon with perforation (Acute) K57.20
[2019-04-27] MEDS: D5 1/2 NS 1000 ML 1,000 ML IV SCH ×2 (12:22→23:35)
[2019-04-27] MEDS: ZOSYN VIAL 3.375 GRAMS 3.375 G in NS 100 ML IV + SPIKE MINIBAG* 100 ML IV SCH ×3 (12:23→23:34)
[2019-04-27] MEDS: LOVENOX INJ 40 MG SYR SC SCH (12:29)
[2019-04-27] MEDS ORDERED: FIORICET TAB PO PRN (14:29)
[2019-04-27] MEDS ORDERED: MAGNESIUM SULFATE 1 GRAM/100 mL PREMIX 1 GM/100 ML BAG IV PRN (19:20)
[2019-04-27] MEDS: K-RIDER 10 MEQ/NS 100 ML 10 MEQ/100 ML BAG IV PRN (20:23)
[2019-04-28] MEDS: D5 1/2 NS 1000 ML 1,000 ML IV SCH ×4 (03:51→21:18)
[2019-04-28] MEDS: K-RIDER 10 MEQ/NS 100 ML 10 MEQ/100 ML BAG IV PRN (03:52)
[2019-04-28] MEDS: FLAGYL IV PREMIX 500 MG BAG 500 MG/100 ML BAG IV SCH ×3 (05:00→21:10)
[2019-04-28 05:57] LABS: BASOPHILS # (AUTO) 0.1 X10^3/uL (0.0-0.1); BASOPHILS % (AUTO) 0.8 % (0.2-1.0); EOSINOPHILS # (AUTO) 0.1 x10^3/uL (0.0-0.2); EOSINOPHILS % (AUTO) 1.8 % (0.9-2.9); HEMATOCRIT 41.1 % (42.0-54.0); LYMPHOCYTES # (AUTO) 1.3 X10^3/uL (1.3-2.9); LYMPHOCYTES % (AUTO) 16.4 % (21.0-51.0); MEAN CORPUSCULAR HEMOGLOBIN 32.3 pg (27.0-34.0); MEAN PLATELET VOLUME 8.3 fL (7.4-11.0); MONOCYTES # (AUTO) 0.6 x10^3/uL (0.3-0.8); MONOCYTES % (AUTO) 7.1 % (0.0-13.0); NEUTROPHILS % (AUTO) 73.9 % (42.0-75.0); PLATELET COUNT 212 X10^3/uL (150.0-450.0); RED BLOOD COUNT 4.33 X10^6/uL (4.7-6.0); RED CELL DISTRIBUTION WIDTH 13.1 % (11.6-16.5); WHITE BLOOD COUNT 8.1 X10^3/uL (3.6-10.0)
[2019-04-28] MEDS: ZOSYN VIAL 3.375 GRAMS 3.375 G in NS 100 ML IV + SPIKE MINIBAG* 100 ML IV SCH ×4 (06:00→23:00)
[2019-04-28 06:30] LABS: ALANINE AMINOTRANSFERASE 19 Units/L (12-78); ALBUMIN 3.1 g/dL (3.4-5.0); ALKALINE PHOSPHATASE 77 Units/L (46-116); ASPARTATE AMINO TRANSFERASE 11 Units/L (15-37); BLOOD UREA NITROGEN 17 mg/dL (7-18); CALCIUM 8.5 mg/dL (8.5-10.1); CARBON DIOXIDE 29.1 mmol/L (21-32); CHLORIDE 105 mmol/L (98-107); COR CA(FOR HYPOALB) 9.2 mg/dL (8.5-10.1); CREATININE 1.42 mg/dL (0.70-1.30); SODIUM 140 mmol/L (136-145); TOTAL PROTEIN 7.2 g/dL (6.4-8.2); eGFR NON BLACK RACES 59 (>60)
--- NOTE | 2019-04-28 08:17 | PCM.PROG ---
Progress Note Progress Note for Day of Date of Exam: 04/28/19 Subjective Subjective: Patient seen at bedside, sleeping comfortably. He reports pain is slightly better, mostly in the left side. He states there's some pressure across the abdomen and back. He denies N/V/D. No BM yesterday. He reports slight pain with ambulation to the bathroom. Past Medical Family Social History Past Med/Fam/Surg Hx: No changes since H&P Allergies: Allergies penicillin G Allergy (Verified 07/27/17 07:56) Review of Systems ROS: No change since H&P Vital Signs and I&O's Vital Signs: Temperature 99.0 F Pulse Rate [Brachial] 77 Pulse Rate 100 Respiratory Rate 18 Blood Pressure [Right Arm] 99/57 Blood Pressure [Left Arm] 139/83 Blood Pressure 137/80 O2 Sat by Pulse Oximetry 97 Intake and Output: Intake & Output 04/25/19 04/26/19 04/27/19 04/28/19 23:59 23:59 23:59 23:59 Intake Total 310 / 310 1979 1260 / 1260 Balance 310 / 310 1979 1260 / 1260 Physical Exam Oriented: Normal Eyes: Normal Ear: Normal Nose: Normal Throat: Normal Respiratory: Normal Cardiovascular: Normal Auscultation: Bowel Sounds: Increased Tenderness: LLQ and Moderate (soft abdomen with moderate LLQ tenderness with mild rebound . ) Skin: Normal Musculoskeletal: Normal Psychiatric: Normal Mood Description: Calm Affect: Normal Speech Pattern: Clear and Appropriate Laboratory and Diagnostics Result Diagrams: 04/28/19 05:25 04/28/19 05:25 Labs: Laboratory WBC 8.1 X10^3/uL (3.6-10.0) 04/28/19 05:25 RBC 4.33 X10^6/uL (4.7-6.0) L 04/28/19 05:25 Hgb 14.0 g/dL (13.5-18.0) 04/28/19 05:25 Hct 41.1 % (42.0-54.0) L 04/28/19 05:25 MCV 95.0 fL (80.0-100.0) 04/28/19 05:25 MCH 32.3 pg (27.0-34.0) 04/28/19 05:25 MCHC 34.0 g/dL (33.0-35.0) 04/28/19 05:25 RDW 13.1 % (11.6-16.5) 04/28/19 05:25 Plt Count 212 X10^3/uL (150.0-450.0) 04/28/19 05:25 MPV 8.3 fL (7.4-11.0) 04/28/19 05:25 Neut % (Auto) 73.9 % (42.0-75.0) 04/28/19 05:25 Lymph % (Auto) 16.4 % (21.0-51.0) L 04/28/19 05:25 [place] % (Auto) 7.1 % (0.0-13.0) 04/28/19 05:25 Eos % (Auto) 1.8 % (0.9-2.9) 04/28/19 05:25 Baso % (Auto) 0.8 % (0.2-1.0) 04/28/19 05:25 Neut # (Auto) 6.0 x10^3/uL (2.2-4.8) H 04/28/19 05:25 Lymph # (Auto) 1.3 X10^3/uL (1.3-2.9) 04/28/19 05:25 [place] # (Auto) 0.6 x10^3/uL (0.3-0.8) 04/28/19 05:25 Eos # (Auto) 0.1 x10^3/uL (0.0-0.2) 04/28/19 05:25 Baso # (Auto) 0.1 X10^3/uL (0.0-0.1) 04/28/19 05:25 Absolute Nucleated RBC 0.1 /100WBC 04/28/19 05:25 Sodium 140 mmol/L (136-145) 04/28/19 05:25 Corrected Sodium TNP 04/28/19 05:25 Potassium 4.2 mmol/L (3.5-5.1) 04/28/19 05:25 Chloride 105 mmol/L (98-107) 04/28/19 05:25 Carbon Dioxide 29.1 mmol/L (21-32) 04/28/19 05:25 BUN 17 mg/dL (7-18) 04/28/19 05:25 Creatinine 1.42 mg/dL (0.70-1.30) H 04/28/19 05:25 Est GFR (MDRD) Af Amer > 60 (>60) 04/28/19 05:25 Est GFR (MDRD) Non-Af 59 (>60) 04/28/19 05:25 Glucose 91 mg/dL (65-99) 04/28/19 05:25 Calcium 8.5 mg/dL (8.5-10.1) 04/28/19 05:25 Corrected Calcium 9.2 mg/dL (8.5-10.1) 04/28/19 05:25 Magnesium 1.9 mg/dL (1.7-2.9) 04/27/19 05:38 Total Bilirubin 1.00 mg/dL (0.2-1.0) 04/28/19 05:25 AST 11 Units/L (15-37) L 04/28/19 05:25 ALT 19 Units/L (12-78) 04/28/19 05:25 Alkaline Phosphatase 77 Units/L (46-116) 04/28/19 05:25 Total Protein 7.2 g/dL (6.4-8.2) 04/28/19 05:25 Albumin 3.1 g/dL (3.4-5.0) L 04/28/19 05:25 Globulin 4.1 g/dL (2.5-4.5) 04/28/19 05:25 Albumin/Globulin Ratio 0.8 Ratio (1.1-2.1) L 04/28/19 05:25 Specimen Type Clean catch urine 04/27/19 06:00 Urine Color Yellow (YELLOW) 04/27/19 06:00 Urine Appearance Hazy (CLEAR) 04/27/19 06:00 Urine pH 6.0 (5.0 - 8.0) 04/27/19 06:00 Ur Specific [place] 1.010 (1.000-1.030) 04/27/19 06:00 Urine Protein 2+ (NEGATIVE) 04/27/19 06:00 Urine Glucose (UA) Negative (NEGATIVE) 04/27/19 06:00 Urine Ketones 3+ (NEGATIVE) 04/27/19 06:00 Urine Occult Blood 2+ (NEGATIVE) 04/27/19 06:00 Urine Nitrite Negative (NEGATIVE) 04/27/19 06:00 Urine Bilirubin Negative (NEGATIVE) 04/27/19 06:00 Urine Urobilinogen 2+ (NORMAL) 04/27/19 06:00 Ur Leukocyte Esterase Negative (NEGATIVE) 04/27/19 06:00 Urine RBC 0-2 /HPF (0-3) 04/27/19 06:00 Urine WBC None seen /HPF (0-5) 04/27/19 06:00 Ur Squamous Epith Cells Negative /HPF (NEGATIVE) 04/27/19 06:00 Urine Bacteria Negative /HPF (NEGATIVE) 04/27/19 06:00 Urine Mucus Few /HPF (NEGATIVE) 04/27/19 06:00 Ur Culture Indicated? No/not indicated 04/27/19 06:00 Plan (1) Diverticulitis of colon with perforation: Status: Acute Qualifiers: Diverticulitis bleeding: without bleeding Qualified Code(s): K57.20 - Diverticulitis of large intestine with perforation and abscess without bleeding Plan: Dr. Vides following, no recommendations for surgical intervention. WBC normal today. Continue conservative treatment with Flagyl, Zosyn, IVF D5 Diet as per surgery: may have water today. If patient continues to do well tomorrow, can start clears, monitor closely. (2) Acute renal failure: Status: Acute Qualifiers: Acute renal failure type: unspecified Qualified Code(s): N17.9 - Acute kidney failure, unspecified Plan: Cr 1.42, continue hydration Monitor CMP
--- NOTE | 2019-04-28 08:43 | DR.PROGNOT ---
Hospital Progress Notes - Progress Note for Day of: Progress Note Date: 04/28/19 - Chief Complaint Chief Complaint: still having LLQ abdominal pain . no nausea or vomiting . having low grade fever . WBC normal 8.1. Creatinin is slightly elevated 1.42. - Past Medical Family Social History Past Med/Fam/Surg Hx: No changes since H&P Allergies: Allergies penicillin G Allergy (Verified 07/27/17 07:56) - Review Of Systems ROS: No change since H&P - Vital Signs Vital Signs: Temperature 99.0 F Pulse Rate [Brachial] 77 Pulse Rate 100 Respiratory Rate 18 Blood Pressure [Right Arm] 99/57 Blood Pressure [Left Arm] 139/83 Blood Pressure 137/80 O2 Sat by Pulse Oximetry 97 - Physical Exam Oriented: Normal Eyes: Normal Ear: Normal Nose: Normal Throat: Normal Respiratory: Normal Cardiovascular: Normal GI:Auscultation: Decreased GI: Tenderness: LLQ, Moderate (soft abdomen with moderate LLQ tenderness with mild rebound .) Skin: Normal Musculoskeletal: Normal Psychiatric: Normal Mood Description: Calm Affect: Normal Speech Pattern: Clear, Appropriate - Laboratory and Diagnostics Result Diagrams: 04/28/19 05:25 04/28/19 05:25 Labs: Laboratory WBC 8.1 X10^3/uL (3.6-10.0) 04/28/19 05:25 RBC 4.33 X10^6/uL (4.7-6.0) L 04/28/19 05:25 Hgb 14.0 g/dL (13.5-18.0) 04/28/19 05:25 Hct 41.1 % (42.0-54.0) L 04/28/19 05:25 MCV 95.0 fL (80.0-100.0) 04/28/19 05:25 MCH 32.3 pg (27.0-34.0) 04/28/19 05:25 MCHC 34.0 g/dL (33.0-35.0) 04/28/19 05:25 RDW 13.1 % (11.6-16.5) 04/28/19 05:25 Plt Count 212 X10^3/uL (150.0-450.0) 04/28/19 05:25 MPV 8.3 fL (7.4-11.0) 04/28/19 05:25 Neut % (Auto) 73.9 % (42.0-75.0) 04/28/19 05:25 Lymph % (Auto) 16.4 % (21.0-51.0) L 04/28/19 05:25 [place] % (Auto) 7.1 % (0.0-13.0) 04/28/19 05:25 Eos % (Auto) 1.8 % (0.9-2.9) 04/28/19 05:25 Baso % (Auto) 0.8 % (0.2-1.0) 04/28/19 05:25 Neut # (Auto) 6.0 x10^3/uL (2.2-4.8) H 04/28/19 05:25 Lymph # (Auto) 1.3 X10^3/uL (1.3-2.9) 04/28/19 05:25 [place] # (Auto) 0.6 x10^3/uL (0.3-0.8) 04/28/19 05:25 Eos # (Auto) 0.1 x10^3/uL (0.0-0.2) 04/28/19 05:25 Baso # (Auto) 0.1 X10^3/uL (0.0-0.1) 04/28/19 05:25 Absolute Nucleated RBC 0.1 /100WBC 04/28/19 05:25 Sodium 140 mmol/L (136-145) 04/28/19 05:25 Corrected Sodium TNP 04/28/19 05:25 Potassium 4.2 mmol/L (3.5-5.1) 04/28/19 05:25 Chloride 105 mmol/L (98-107) 04/28/19 05:25 Carbon Dioxide 29.1 mmol/L (21-32) 04/28/19 05:25 BUN 17 mg/dL (7-18) 04/28/19 05:25 Creatinine 1.42 mg/dL (0.70-1.30) H 04/28/19 05:25 Est GFR (MDRD) Af Amer > 60 (>60) 04/28/19 05:25 Est GFR (MDRD) Non-Af 59 (>60) 04/28/19 05:25 Glucose 91 mg/dL (65-99) 04/28/19 05:25 Calcium 8.5 mg/dL (8.5-10.1) 04/28/19 05:25 Corrected Calcium 9.2 mg/dL (8.5-10.1) 04/28/19 05:25 Magnesium 1.9 mg/dL (1.7-2.9) 04/27/19 05:38 Total Bilirubin 1.00 mg/dL (0.2-1.0) 04/28/19 05:25 AST 11 Units/L (15-37) L 04/28/19 05:25 ALT 19 Units/L (12-78) 04/28/19 05:25 Alkaline Phosphatase 77 Units/L (46-116) 04/28/19 05:25 Total Protein 7.2 g/dL (6.4-8.2) 04/28/19 05:25 Albumin 3.1 g/dL (3.4-5.0) L 04/28/19 05:25 Globulin 4.1 g/dL (2.5-4.5) 04/28/19 05:25 Albumin/Globulin Ratio 0.8 Ratio (1.1-2.1) L 04/28/19 05:25 Specimen Type Clean catch urine 04/27/19 06:00 Urine Color Yellow (YELLOW) 04/27/19 06:00 Urine Appearance Hazy (CLEAR) 04/27/19 06:00 Urine pH 6.0 (5.0 - 8.0) 04/27/19 06:00 Ur Specific [place] 1.010 (1.000-1.030) 04/27/19 06:00 Urine Protein 2+ (NEGATIVE) 04/27/19 06:00 Urine Glucose (UA) Negative (NEGATIVE) 04/27/19 06:00 Urine Ketones 3+ (NEGATIVE) 04/27/19 06:00 Urine Occult Blood 2+ (NEGATIVE) 04/27/19 06:00 Urine Nitrite Negative (NEGATIVE) 04/27/19 06:00 Urine Bilirubin Negative (NEGATIVE) 04/27/19 06:00 Urine Urobilinogen 2+ (NORMAL) 04/27/19 06:00 Ur Leukocyte Esterase Negative (NEGATIVE) 04/27/19 06:00 Urine RBC 0-2 /HPF (0-3) 04/27/19 06:00 Urine WBC None seen /HPF (0-5) 04/27/19 06:00 Ur Squamous Epith Cells Negative /HPF (NEGATIVE) 04/27/19 06:00 Urine Bacteria Negative /HPF (NEGATIVE) 04/27/19 06:00 Urine Mucus Few /HPF (NEGATIVE) 04/27/19 06:00 Ur Culture Indicated? No/not indicated 04/27/19 06:00 - Assessment and Plan 1: acute sigmoid diverticulitis with sealed perforation and localized peritonitis. to keep NPO , IV ATB and IVF and close observation . may have water . - Problem Patient Problems: Patient Problems Acute renal failure (Acute) N17.9 Headache (Acute) R51 Diverticulitis of colon with perforation (Acute) K57.20
[2019-04-28] MEDS: TYLENOL 325 MG TAB PO PRN ×2 (08:46→14:16)
[2019-04-28] MEDS: LOVENOX INJ 40 MG SYR SC SCH (08:47)
[2019-04-28] MEDS: MORPHINE SULFATE INJ 2 MG INJ IVP PRN (21:16)
[2019-04-29] MEDS: D5 1/2 NS 1000 ML 1,000 ML IV SCH ×4 (03:22→21:22)
[2019-04-29] MEDS: ZOSYN VIAL 3.375 GRAMS 3.375 G in NS 100 ML IV + SPIKE MINIBAG* 100 ML IV SCH ×4 (04:15→22:39)
[2019-04-29] MEDS: FLAGYL IV PREMIX 500 MG BAG 500 MG/100 ML BAG IV SCH ×3 (06:05→21:24)
[2019-04-29 06:24] LABS: BASOPHILS % (AUTO) 0.8 % (0.2-1.0); EOSINOPHILS # (AUTO) 0.2 x10^3/uL (0.0-0.2); HEMOGLOBIN 13.4 g/dL (13.5-18.0); LYMPHOCYTES # (AUTO) 1.4 X10^3/uL (1.3-2.9); LYMPHOCYTES % (AUTO) 24.3 % (21.0-51.0); MEAN CORPUSCULAR HEMOGLOBIN 32.3 pg (27.0-34.0); MEAN CORPUSCULAR HGB CONC 34.3 g/dL (33.0-35.0); MEAN CORPUSCULAR VOLUME 94.2 fL (80.0-100.0); MEAN PLATELET VOLUME 7.4 fL (7.4-11.0); MONOCYTES # (AUTO) 0.4 x10^3/uL (0.3-0.8); MONOCYTES % (AUTO) 6.7 % (0.0-13.0); NEUTROPHILS # (AUTO) 3.6 x10^3/uL (2.2-4.8); NEUTROPHILS % (AUTO) 64.2 % (42.0-75.0); PLATELET COUNT 242 X10^3/uL (150.0-450.0); RED BLOOD COUNT 4.14 X10^6/uL (4.7-6.0); WHITE BLOOD COUNT 5.6 X10^3/uL (3.6-10.0)
[2019-04-29 06:49] LABS: ALANINE AMINOTRANSFERASE 17 Units/L (12-78); ALBUMIN 2.8 g/dL (3.4-5.0); ALKALINE PHOSPHATASE 66 Units/L (46-116); ASPARTATE AMINO TRANSFERASE 11 Units/L (15-37); BLOOD UREA NITROGEN 16 mg/dL (7-18); CARBON DIOXIDE 25.4 mmol/L (21-32); CHLORIDE 105 mmol/L (98-107); CREATININE 1.17 mg/dL (0.70-1.30); SODIUM 140 mmol/L (136-145); TOTAL PROTEIN 6.5 g/dL (6.4-8.2); eGFR NON BLACK RACES > 60 (>60)
[2019-04-29] MEDS: LOVENOX INJ 40 MG SYR SC SCH (09:51)
[2019-04-29] MEDS: K-RIDER 10 MEQ/NS 100 ML 10 MEQ/100 ML BAG IV PRN ×2 (17:54→23:32)
[2019-04-30] MEDS: D5 1/2 NS 1000 ML 1,000 ML IV SCH ×4 (04:38→18:23)
[2019-04-30] MEDS: ZOSYN VIAL 3.375 GRAMS 3.375 G in NS 100 ML IV + SPIKE MINIBAG* 100 ML IV SCH ×4 (05:16→22:22)
[2019-04-30] MEDS: FLAGYL IV PREMIX 500 MG BAG 500 MG/100 ML BAG IV SCH ×3 (06:04→21:02)
[2019-04-30 06:38] LABS: BASOPHILS # (AUTO) 0.1 X10^3/uL (0.0-0.1); BASOPHILS % (AUTO) 1.3 % (0.2-1.0); EOSINOPHILS # (AUTO) 0.3 x10^3/uL (0.0-0.2); EOSINOPHILS % (AUTO) 4.2 % (0.9-2.9); HEMOGLOBIN 13.9 g/dL (13.5-18.0); LYMPHOCYTES # (AUTO) 1.6 X10^3/uL (1.3-2.9); LYMPHOCYTES % (AUTO) 25.1 % (21.0-51.0); MEAN CORPUSCULAR HEMOGLOBIN 32.2 pg (27.0-34.0); MEAN CORPUSCULAR HGB CONC 33.8 g/dL (33.0-35.0); MEAN CORPUSCULAR VOLUME 95.1 fL (80.0-100.0); MEAN PLATELET VOLUME 7.8 fL (7.4-11.0); MONOCYTES # (AUTO) 0.6 x10^3/uL (0.3-0.8); MONOCYTES % (AUTO) 10.2 % (0.0-13.0); NEUTROPHILS # (AUTO) 3.7 x10^3/uL (2.2-4.8); NEUTROPHILS % (AUTO) 59.2 % (42.0-75.0); PLATELET COUNT 253 X10^3/uL (150.0-450.0); RED BLOOD COUNT 4.31 X10^6/uL (4.7-6.0); RED CELL DISTRIBUTION WIDTH 13.1 % (11.6-16.5); WHITE BLOOD COUNT 6.2 X10^3/uL (3.6-10.0)
[2019-04-30 06:44] LABS: ALANINE AMINOTRANSFERASE 19 Units/L (12-78); ALBUMIN 2.9 g/dL (3.4-5.0); ALKALINE PHOSPHATASE 66 Units/L (46-116); ASPARTATE AMINO TRANSFERASE 14 Units/L (15-37); BLOOD UREA NITROGEN 8 mg/dL (7-18); CALCIUM 8.1 mg/dL (8.5-10.1); CARBON DIOXIDE 26.7 mmol/L (21-32); CHLORIDE 107 mmol/L (98-107); CREATININE 1.08 mg/dL (0.70-1.30); SODIUM 142 mmol/L (136-145); TOTAL PROTEIN 6.5 g/dL (6.4-8.2); eGFR NON BLACK RACES > 60 (>60)
[2019-04-30] MEDS: LOVENOX INJ 40 MG SYR SC SCH (09:01)
[2019-04-30] MEDS: MORPHINE SULFATE INJ 2 MG INJ IVP PRN (13:58)
--- NOTE | 2019-04-30 22:27 | PCM.PROG ---
Progress Note - Progress Note for Day of Date of Exam: 04/29/19 - Subjective Subjective: IS BEING TREATED FOR DIVERTICULITIS WITH PERFORATION OF THE COLON. GENERAL SURGERY CONSULTED WITH PATIENT AND DID NOT RECOMMENT SURGICAL INTERVENTION AT THIS TIME. TODAY, HE IS ALERT AND ORIENTED, LYING IN BED ON MORNING ROUNDS. HE CONTINUES WITH MILD PAIN THIS MORNING, BUT DENIES NAUSEA OR VOMITING. HIS VITALS THIS MORNING ARE: 97.8-66-20-96%-125/56. LABS WERE OBTAINED. ABNORMAL LAB VALUES INCLUDE THE FOLLOWING: RBC 4.14, HGB 13.4, HCT 39.0, GLUCOSE 108, CALCIUM 8.0, AST 11, ALBUMIN 2.8. HE IS CURRENTLY RECEIVING IV ZOSYN, IV FLAGYL, MORPHINE PRN, ZOFRAN PRN, IV FLUIDS, AND DVT PROPHYLAXIS. WE WILL ADVANCE DIET TO FULL LIQUIDS TODAY. OTHERWISE, WE WILL FOLLOW UP WITH AM LABS AND CONTINUE TO MONITOR. - Past Medical Family Social History Past Med/Fam/Surg Hx: No changes since H&P Allergies: Allergies penicillin G Allergy (Verified 07/27/17 07:56) - Review of Systems ROS: No change since H&P - Vital Signs and I&O's Vital Signs: Temperature 97.8 F Pulse Rate [Brachial] 79 Pulse Rate 100 Respiratory Rate 20 Blood Pressure [Right Arm] 128/73 Blood Pressure [Left Arm] 126/71 Blood Pressure 137/80 O2 Sat by Pulse Oximetry 98 Intake and Output: Intake & Output 04/28/19 04/29/19 04/30/19 05/01/19 11:59 11:59 11:59 11:59 Intake Total 2490 / 2490 2670 / 2670 4340 / 4340 1500 / 1500 Balance 2490 / 2490 2670 / 2670 4340 / 4340 1500 / 1500 - Physical Exam Oriented: Normal Eyes: Normal Ear: Normal Nose: Normal Throat: Normal Respiratory: Normal Cardiovascular: Normal Auscultation: Bowel Sounds: Decreased Palpation: Normal Tenderness: LLQ, Mild Skin: Normal Musculoskeletal: Normal Psychiatric: Normal Mood Description: Calm Affect: Normal Speech Pattern: Clear, Appropriate - Laboratory and Diagnostics Result Diagrams: 04/30/19 06:20 04/30/19 06:20 Labs: Laboratory WBC 6.2 X10^3/uL (3.6-10.0) 04/30/19 06:20 RBC 4.31 X10^6/uL (4.7-6.0) L 04/30/19 06:20 Hgb 13.9 g/dL (13.5-18.0) 04/30/19 06:20 Hct 41.0 % (42.0-54.0) L 04/30/19 06:20 MCV 95.1 fL (80.0-100.0) 04/30/19 06:20 MCH 32.2 pg (27.0-34.0) 04/30/19 06:20 MCHC 33.8 g/dL (33.0-35.0) 04/30/19 06:20 RDW 13.1 % (11.6-16.5) 04/30/19 06:20 Plt Count 253 X10^3/uL (150.0-450.0) 04/30/19 06:20 MPV 7.8 fL (7.4-11.0) 04/30/19 06:20 Neut % (Auto) 59.2 % (42.0-75.0) 04/30/19 06:20 Lymph % (Auto) 25.1 % (21.0-51.0) 04/30/19 06:20 [place] % (Auto) 10.2 % (0.0-13.0) 04/30/19 06:20 Eos % (Auto) 4.2 % (0.9-2.9) H 04/30/19 06:20 Baso % (Auto) 1.3 % (0.2-1.0) H 04/30/19 06:20 Neut # (Auto) 3.7 x10^3/uL (2.2-4.8) 04/30/19 06:20 Lymph # (Auto) 1.6 X10^3/uL (1.3-2.9) 04/30/19 06:20 [place] # (Auto) 0.6 x10^3/uL (0.3-0.8) 04/30/19 06:20 Eos # (Auto) 0.3 x10^3/uL (0.0-0.2) H 04/30/19 06:20 Baso # (Auto) 0.1 X10^3/uL (0.0-0.1) 04/30/19 06:20 Absolute Nucleated RBC 0.0 /100WBC 04/30/19 06:20 Sodium 142 mmol/L (136-145) 04/30/19 06:20 Corrected Sodium TNP 04/30/19 06:20 Potassium 3.9 mmol/L (3.5-5.1) 04/30/19 06:20 Chloride 107 mmol/L (98-107) 04/30/19 06:20 Carbon Dioxide 26.7 mmol/L (21-32) 04/30/19 06:20 BUN 8 mg/dL (7-18) 04/30/19 06:20 Creatinine 1.08 mg/dL (0.70-1.30) 04/30/19 06:20 Est GFR (MDRD) Af Amer > 60 (>60) 04/30/19 06:20 Est GFR (MDRD) Non-Af > 60 (>60) 04/30/19 06:20 Glucose 109 mg/dL (65-99) H 04/30/19 06:20 Calcium 8.1 mg/dL (8.5-10.1) L 04/30/19 06:20 Corrected Calcium 9.0 mg/dL (8.5-10.1) 04/30/19 06:20 Magnesium 1.9 mg/dL (1.7-2.9) 04/27/19 05:38 Total Bilirubin 0.20 mg/dL (0.2-1.0) 04/30/19 06:20 AST 14 Units/L (15-37) L 04/30/19 06:20 ALT 19 Units/L (12-78) 04/30/19 06:20 Alkaline Phosphatase 66 Units/L (46-116) 04/30/19 06:20 Total Protein 6.5 g/dL (6.4-8.2) 04/30/19 06:20 Albumin 2.9 g/dL (3.4-5.0) L 04/30/19 06:20 Globulin 3.6 g/dL (2.5-4.5) 04/30/19 06:20 Albumin/Globulin Ratio 0.8 Ratio (1.1-2.1) L 04/30/19 06:20 Specimen Type Clean catch urine 04/27/19 06:00 Urine Color Yellow (YELLOW) 04/27/19 06:00 Urine Appearance Hazy (CLEAR) 04/27/19 06:00 Urine pH 6.0 (5.0 - 8.0) 04/27/19 06:00 Ur Specific [place] 1.010 (1.000-1.030) 04/27/19 06:00 Urine Protein 2+ (NEGATIVE) 04/27/19 06:00 Urine Glucose (UA) Negative (NEGATIVE) 04/27/19 06:00 Urine Ketones 3+ (NEGATIVE) 04/27/19 06:00 Urine Occult Blood 2+ (NEGATIVE) 04/27/19 06:00 Urine Nitrite Negative (NEGATIVE) 04/27/19 06:00 Urine Bilirubin Negative (NEGATIVE) 04/27/19 06:00 Urine Urobilinogen 2+ (NORMAL) 04/27/19 06:00 Ur Leukocyte Esterase Negative (NEGATIVE) 04/27/19 06:00 Urine RBC 0-2 /HPF (0-3) 04/27/19 06:00 Urine WBC None seen /HPF (0-5) 04/27/19 06:00 Ur Squamous Epith Cells Negative /HPF (NEGATIVE) 04/27/19 06:00 Urine Bacteria Negative /HPF (NEGATIVE) 04/27/19 06:00 Urine Mucus Few /HPF (NEGATIVE) 04/27/19 06:00 Ur Culture Indicated? No/not indicated 04/27/19 06:00 - Plan (1) Diverticulitis of colon with perforation Status: Acute Qualifiers: Diverticulitis bleeding: without bleeding Qualified Code(s): K57.20 - Diverticulitis of large intestine with perforation and abscess without bleeding Plan: Dr. Vides following, no recommendations for surgical intervention. WBC normal today. Continue conservative treatment with Flagyl, Zosyn, IVF D5. Diet : FULL LIQUIDS
--- NOTE | 2019-04-30 22:29 | PCM.PROG ---
Progress Note - Progress Note for Day of Date of Exam: 04/30/19 - Subjective Subjective: IS BEING TREATED FOR DIVERTICULITIS WITH PERFORATION OF THE COLON. GENERAL SURGERY CONSULTED WITH PATIENT AND DID NOT RECOMMENT SURGICAL INTERVENTION AT THIS TIME. TODAY, HE IS ALERT AND ORIENTED, LYING IN BED ON MORNING ROUNDS. HE CONTINUES WITH MILD PAIN THIS MORNING, BUT DENIES NAUSEA OR VOMITING. HIS VITALS THIS MORNING ARE: 98.0-71-18-98%-121/64. LABS WERE OBTAINED. ABNORMAL LAB VALUES INCLUDE THE FOLLOWING: RBC 4.31, HCT 41.0, GLUCOSE 109, CALCIUM 8.1, AST 14, ALBUMIN 2.9. HE IS CURRENTLY RECEIVING IV ZOSYN, IV FLAGYL, MORPHINE PRN, ZOFRAN PRN, IV FLUIDS, AND DVT PROPHYLAXIS. WE WILL CONTINUE WITH CURRENT PLAN OF CARE TODAY. OTHERWISE, WE WILL FOLLOW UP WITH AM LABS AND CONTINUE TO MONITOR. - Past Medical Family Social History Past Med/Fam/Surg Hx: No changes since H&P Allergies: Allergies penicillin G Allergy (Verified 07/27/17 07:56) - Review of Systems ROS: No change since H&P - Vital Signs and I&O's Vital Signs: Temperature 97.8 F Pulse Rate [Brachial] 79 Pulse Rate 100 Respiratory Rate 20 Blood Pressure [Right Arm] 128/73 Blood Pressure [Left Arm] 126/71 Blood Pressure 137/80 O2 Sat by Pulse Oximetry 98 Intake and Output: Intake & Output 04/28/19 04/29/19 04/30/19 05/01/19 11:59 11:59 11:59 11:59 Intake Total 2490 / 2490 2670 / 2670 4340 / 4340 1500 / 1500 Balance 2490 / 2490 2670 / 2670 4340 / 4340 1500 / 1500 - Physical Exam Oriented: Normal Eyes: Normal Ear: Normal Nose: Normal Throat: Normal Respiratory: Normal Cardiovascular: Normal Auscultation: Bowel Sounds: Decreased Tenderness: LLQ, Mild Skin: Normal Musculoskeletal: Normal Psychiatric: Normal Mood Description: Calm Affect: Normal Speech Pattern: Clear, Appropriate - Laboratory and Diagnostics Result Diagrams: 04/30/19 06:20 04/30/19 06:20 Labs: Laboratory WBC 6.2 X10^3/uL (3.6-10.0) 04/30/19 06:20 RBC 4.31 X10^6/uL (4.7-6.0) L 04/30/19 06:20 Hgb 13.9 g/dL (13.5-18.0) 04/30/19 06:20 Hct 41.0 % (42.0-54.0) L 04/30/19 06:20 MCV 95.1 fL (80.0-100.0) 04/30/19 06:20 MCH 32.2 pg (27.0-34.0) 04/30/19 06:20 MCHC 33.8 g/dL (33.0-35.0) 04/30/19 06:20 RDW 13.1 % (11.6-16.5) 04/30/19 06:20 Plt Count 253 X10^3/uL (150.0-450.0) 04/30/19 06:20 MPV 7.8 fL (7.4-11.0) 04/30/19 06:20 Neut % (Auto) 59.2 % (42.0-75.0) 04/30/19 06:20 Lymph % (Auto) 25.1 % (21.0-51.0) 04/30/19 06:20 [place] % (Auto) 10.2 % (0.0-13.0) 04/30/19 06:20 Eos % (Auto) 4.2 % (0.9-2.9) H 04/30/19 06:20 Baso % (Auto) 1.3 % (0.2-1.0) H 04/30/19 06:20 Neut # (Auto) 3.7 x10^3/uL (2.2-4.8) 04/30/19 06:20 Lymph # (Auto) 1.6 X10^3/uL (1.3-2.9) 04/30/19 06:20 [place] # (Auto) 0.6 x10^3/uL (0.3-0.8) 04/30/19 06:20 Eos # (Auto) 0.3 x10^3/uL (0.0-0.2) H 04/30/19 06:20 Baso # (Auto) 0.1 X10^3/uL (0.0-0.1) 04/30/19 06:20 Absolute Nucleated RBC 0.0 /100WBC 04/30/19 06:20 Sodium 142 mmol/L (136-145) 04/30/19 06:20 Corrected Sodium TNP 04/30/19 06:20 Potassium 3.9 mmol/L (3.5-5.1) 04/30/19 06:20 Chloride 107 mmol/L (98-107) 04/30/19 06:20 Carbon Dioxide 26.7 mmol/L (21-32) 04/30/19 06:20 BUN 8 mg/dL (7-18) 04/30/19 06:20 Creatinine 1.08 mg/dL (0.70-1.30) 04/30/19 06:20 Est GFR (MDRD) Af Amer > 60 (>60) 04/30/19 06:20 Est GFR (MDRD) Non-Af > 60 (>60) 04/30/19 06:20 Glucose 109 mg/dL (65-99) H 04/30/19 06:20 Calcium 8.1 mg/dL (8.5-10.1) L 04/30/19 06:20 Corrected Calcium 9.0 mg/dL (8.5-10.1) 04/30/19 06:20 Magnesium 1.9 mg/dL (1.7-2.9) 04/27/19 05:38 Total Bilirubin 0.20 mg/dL (0.2-1.0) 04/30/19 06:20 AST 14 Units/L (15-37) L 04/30/19 06:20 ALT 19 Units/L (12-78) 04/30/19 06:20 Alkaline Phosphatase 66 Units/L (46-116) 04/30/19 06:20 Total Protein 6.5 g/dL (6.4-8.2) 04/30/19 06:20 Albumin 2.9 g/dL (3.4-5.0) L 04/30/19 06:20 Globulin 3.6 g/dL (2.5-4.5) 04/30/19 06:20 Albumin/Globulin Ratio 0.8 Ratio (1.1-2.1) L 04/30/19 06:20 Specimen Type Clean catch urine 04/27/19 06:00 Urine Color Yellow (YELLOW) 04/27/19 06:00 Urine Appearance Hazy (CLEAR) 04/27/19 06:00 Urine pH 6.0 (5.0 - 8.0) 04/27/19 06:00 Ur Specific [place] 1.010 (1.000-1.030) 04/27/19 06:00 Urine Protein 2+ (NEGATIVE) 04/27/19 06:00 Urine Glucose (UA) Negative (NEGATIVE) 04/27/19 06:00 Urine Ketones 3+ (NEGATIVE) 04/27/19 06:00 Urine Occult Blood 2+ (NEGATIVE) 04/27/19 06:00 Urine Nitrite Negative (NEGATIVE) 04/27/19 06:00 Urine Bilirubin Negative (NEGATIVE) 04/27/19 06:00 Urine Urobilinogen 2+ (NORMAL) 04/27/19 06:00 Ur Leukocyte Esterase Negative (NEGATIVE) 04/27/19 06:00 Urine RBC 0-2 /HPF (0-3) 04/27/19 06:00 Urine WBC None seen /HPF (0-5) 04/27/19 06:00 Ur Squamous Epith Cells Negative /HPF (NEGATIVE) 04/27/19 06:00 Urine Bacteria Negative /HPF (NEGATIVE) 04/27/19 06:00 Urine Mucus Few /HPF (NEGATIVE) 04/27/19 06:00 Ur Culture Indicated? No/not indicated 04/27/19 06:00 - Plan (1) Diverticulitis of colon with perforation Status: Acute Qualifiers: Diverticulitis bleeding: without bleeding Qualified Code(s): K57.20 - Diverticulitis of large intestine with perforation and abscess without bleeding Plan: Dr. Vides following, no recommendations for surgical intervention. WBC normal today. Continue conservative treatment with Flagyl, Zosyn, IVF D5. Diet : FULL LIQUIDS
[2019-05-01] MEDS: D5 1/2 NS 1000 ML 1,000 ML IV SCH ×2 (03:18→03:25)
[2019-05-01] MEDS: ZOSYN VIAL 3.375 GRAMS 3.375 G in NS 100 ML IV + SPIKE MINIBAG* 100 ML IV SCH ×2 (05:49→11:13)
[2019-05-01] MEDS: FLAGYL IV PREMIX 500 MG BAG 500 MG/100 ML BAG IV SCH (05:49)
[2019-05-01 06:08] LABS: ALANINE AMINOTRANSFERASE 28 Units/L (12-78); ALKALINE PHOSPHATASE 65 Units/L (46-116); ASPARTATE AMINO TRANSFERASE 27 Units/L (15-37); BLOOD UREA NITROGEN 4 mg/dL (7-18); CALCIUM 8.3 mg/dL (8.5-10.1); CARBON DIOXIDE 26.7 mmol/L (21-32); CHLORIDE 106 mmol/L (98-107); COR CA(FOR HYPOALB) 9.1 mg/dL (8.5-10.1); COR NA(FOR HYPERGLY) 141 mmol/L (136-145); CREATININE 1.03 mg/dL (0.70-1.30); SODIUM 140 mmol/L (136-145); TOTAL PROTEIN 6.6 g/dL (6.4-8.2); eGFR NON BLACK RACES > 60 (>60)
[2019-05-01 06:11] LABS: BASOPHILS # (AUTO) 0.1 X10^3/uL (0.0-0.1); BASOPHILS % (AUTO) 1.1 % (0.2-1.0); EOSINOPHILS # (AUTO) 0.3 x10^3/uL (0.0-0.2); EOSINOPHILS % (AUTO) 4.7 % (0.9-2.9); HEMATOCRIT 40.7 % (42.0-54.0); LYMPHOCYTES # (AUTO) 1.6 X10^3/uL (1.3-2.9); LYMPHOCYTES % (AUTO) 28.1 % (21.0-51.0); MEAN CORPUSCULAR HEMOGLOBIN 32.2 pg (27.0-34.0); MEAN CORPUSCULAR HGB CONC 34.3 g/dL (33.0-35.0); MEAN CORPUSCULAR VOLUME 93.9 fL (80.0-100.0); MEAN PLATELET VOLUME 7.7 fL (7.4-11.0); MONOCYTES # (AUTO) 0.5 x10^3/uL (0.3-0.8); MONOCYTES % (AUTO) 8.4 % (0.0-13.0); NEUTROPHILS # (AUTO) 3.3 x10^3/uL (2.2-4.8); NEUTROPHILS % (AUTO) 57.7 % (42.0-75.0); PLATELET COUNT 255 X10^3/uL (150.0-450.0); RED BLOOD COUNT 4.34 X10^6/uL (4.7-6.0); RED CELL DISTRIBUTION WIDTH 13.1 % (11.6-16.5); WHITE BLOOD COUNT 5.8 X10^3/uL (3.6-10.0)
[2019-05-01] MEDS ORDERED: K-DUR TAB 20 MEQ PO PRN (06:14)
[2019-05-01] MEDS: LOVENOX INJ 40 MG SYR SC SCH (08:38)
[2019-05-01 12:17] VITALS: BP 134/95
--- NOTE | 2019-05-01 13:12 | W.DIS.FURT ---
Summary of Discharge Discharge Summary of Date Date of Exam: 05/01/19 Admission Date Date of Admission: 04/26/19 Admission Diagnosis Hospital Course: Patient is a 38y/o male who presented with diffuse abdominal pain, worse in the lower left quandrant. CTAP on admissions showed acute dicerticulitis with contained perforated descending colon. Patient was started on pain control, IVF, Ciprofloxacin and Flagyl. He was kept NPO. Dr. Vides with surgery was consulted and recommended conservative management without any surgical intervention. He switched from Cipro to Zosyn. Patient's fluid's were changed to D5 due to NPO status. His pain gradually improved. He was started on clear liquids and gradually advanced further. Patient's electrolytes were monitored daily. His Creatinine had slightly gone up but then improved with hydration. Patient's abdominal pain resolved and he was tolerating diet, stable for discharge. He was discharged with 5 more days of Cipro and Flagyl. He will follow up with Dr. Vides in 2 weeks and PCP in one week. Work excuse provided. Vital Signs: Vital Signs (72 hours) 04/28/19 14:16 04/28/19 15:16 04/28/19 16:00 Temperature 97.6 F Pulse Rate [Brachial] 68 Respiratory Rate 18 18 18 Blood Pressure [Left Arm] Blood Pressure [Right Arm] 142/78 O2 Sat by Pulse Oximetry 96 04/28/19 20:00 04/28/19 21:16 04/28/19 21:46 Temperature 98.4 F Pulse Rate [Brachial] 94 H Respiratory Rate 16 18 18 Blood Pressure [Left Arm] Blood Pressure [Right Arm] 135/85 O2 Sat by Pulse Oximetry 97 04/29/19 00:00 04/29/19 04:00 04/29/19 08:00 Temperature 98.0 F 97.6 F 97.8 F Pulse Rate [Brachial] 90 90 66 Respiratory Rate 20 18 20 Blood Pressure [Left Arm] Blood Pressure [Right Arm] 131/77 101/65 125/56 O2 Sat by Pulse Oximetry 97 99 96 04/29/19 12:00 04/29/19 16:00 04/29/19 19:58 Temperature 98.0 F 97.8 F 98.7 F Pulse Rate [Brachial] 76 75 77 Respiratory Rate 18 18 20 Blood Pressure [Left Arm] Blood Pressure [Right Arm] 117/69 113/59 128/73 O2 Sat by Pulse Oximetry 99 97 97 04/30/19 00:00 04/30/19 04:00 04/30/19 08:00 Temperature 97.8 F 98.8 F 98.0 F Pulse Rate [Brachial] 71 72 70 Respiratory Rate 18 18 18 Blood Pressure [Left Arm] 108/55 100/56 115/55 Blood Pressure [Right Arm] O2 Sat by Pulse Oximetry 96 96 98 04/30/19 12:00 04/30/19 13:58 04/30/19 14:28 Temperature 98.3 F Pulse Rate [Brachial] 71 Respiratory Rate 18 18 18 Blood Pressure [Left Arm] 121/64 Blood Pressure [Right Arm] O2 Sat by Pulse Oximetry 98 04/30/19 15:56 04/30/19 20:00 05/01/19 00:00 Temperature 97.9 F 97.8 F 98.7 F Pulse Rate [Brachial] 78 79 70 Respiratory Rate 20 20 20 Blood Pressure [Left Arm] 155/98 126/71 119/65 Blood Pressure [Right Arm] O2 Sat by Pulse Oximetry 98 98 98 05/01/19 04:00 05/01/19 08:00 05/01/19 12:00 Temperature 98.5 F 98.1 F 97.6 F Pulse Rate [Brachial] 80 73 83 Respiratory Rate 16 18 18 Blood Pressure [Left Arm] 108/62 110/72 134/95 Blood Pressure [Right Arm] O2 Sat by Pulse Oximetry 95 96 96 Labs: Laboratory Last Values WBC 5.8 X10^3/uL (3.6-10.0) 05/01/19 05:30 RBC 4.34 X10^6/uL (4.7-6.0) L 05/01/19 05:30 Hgb 14.0 g/dL (13.5-18.0) 05/01/19 05:30 Hct 40.7 % (42.0-54.0) L 05/01/19 05:30 MCV 93.9 fL (80.0-100.0) 05/01/19 05:30 MCH 32.2 pg (27.0-34.0) 05/01/19 05:30 MCHC 34.3 g/dL (33.0-35.0) 05/01/19 05:30 RDW 13.1 % (11.6-16.5) 05/01/19 05:30 Plt Count 255 X10^3/uL (150.0-450.0) 05/01/19 05:30 MPV 7.7 fL (7.4-11.0) 05/01/19 05:30 Neut % (Auto) 57.7 % (42.0-75.0) 05/01/19 05:30 Lymph % (Auto) 28.1 % (21.0-51.0) 05/01/19 05:30 [place] % (Auto) 8.4 % (0.0-13.0) 05/01/19 05:30 Eos % (Auto) 4.7 % (0.9-2.9) H 05/01/19 05:30 Baso % (Auto) 1.1 % (0.2-1.0) H 05/01/19 05:30 Neut # (Auto) 3.3 x10^3/uL (2.2-4.8) 05/01/19 05:30 Lymph # (Auto) 1.6 X10^3/uL (1.3-2.9) 05/01/19 05:30 [place] # (Auto) 0.5 x10^3/uL (0.3-0.8) 05/01/19 05:30 Eos # (Auto) 0.3 x10^3/uL (0.0-0.2) H 05/01/19 05:30 Baso # (Auto) 0.1 X10^3/uL (0.0-0.1) 05/01/19 05:30 Absolute Nucleated RBC 0.0 /100WBC 05/01/19 05:30 Sodium 140 mmol/L (136-145) 05/01/19 05:30 Corrected Sodium 141 mmol/L (136-145) 05/01/19 05:30 Potassium 3.7 mmol/L (3.5-5.1) 05/01/19 05:30 Chloride 106 mmol/L (98-107) 05/01/19 05:30 Carbon Dioxide 26.7 mmol/L (21-32) 05/01/19 05:30 BUN 4 mg/dL (7-18) L 05/01/19 05:30 Creatinine 1.03 mg/dL (0.70-1.30) 05/01/19 05:30 Est GFR (MDRD) Af Amer > 60 (>60) 05/01/19 05:30 Est GFR (MDRD) Non-Af > 60 (>60) 05/01/19 05:30 Glucose 140 mg/dL (65-99) H 05/01/19 05:30 Calcium 8.3 mg/dL (8.5-10.1) L 05/01/19 05:30 Corrected Calcium 9.1 mg/dL (8.5-10.1) 05/01/19 05:30 Magnesium 1.9 mg/dL (1.7-2.9) 04/27/19 05:38 Total Bilirubin 0.20 mg/dL (0.2-1.0) 05/01/19 05:30 AST 27 Units/L (15-37) 05/01/19 05:30 ALT 28 Units/L (12-78) 05/01/19 05:30 Alkaline Phosphatase 65 Units/L (46-116) 05/01/19 05:30 Total Protein 6.6 g/dL (6.4-8.2) 05/01/19 05:30 Albumin 3.0 g/dL (3.4-5.0) L 05/01/19 05:30 Globulin 3.6 g/dL (2.5-4.5) 05/01/19 05:30 Albumin/Globulin Ratio 0.8 Ratio (1.1-2.1) L 05/01/19 05:30 Specimen Type Clean catch urine 04/27/19 06:00 Urine Color Yellow (YELLOW) 04/27/19 06:00 Urine Appearance Hazy (CLEAR) 04/27/19 06:00 Urine pH 6.0 (5.0 - 8.0) 04/27/19 06:00 Ur Specific [place] 1.010 (1.000-1.030) 04/27/19 06:00 Urine Protein 2+ (NEGATIVE) 04/27/19 06:00 Urine Glucose (UA) Negative (NEGATIVE) 04/27/19 06:00 Urine Ketones 3+ (NEGATIVE) 04/27/19 06:00 Urine Occult Blood 2+ (NEGATIVE) 04/27/19 06:00 Urine Nitrite Negative (NEGATIVE) 04/27/19 06:00 Urine Bilirubin Negative (NEGATIVE) 04/27/19 06:00 Urine Urobilinogen 2+ (NORMAL) 04/27/19 06:00 Ur Leukocyte Esterase Negative (NEGATIVE) 04/27/19 06:00 Urine RBC 0-2 /HPF (0-3) 04/27/19 06:00 Urine WBC None seen /HPF (0-5) 04/27/19 06:00 Ur Squamous Epith Cells Negative /HPF (NEGATIVE) 04/27/19 06:00 Urine Bacteria Negative /HPF (NEGATIVE) 04/27/19 06:00 Urine Mucus Few /HPF (NEGATIVE) 04/27/19 06:00 Ur Culture Indicated? No/not indicated 04/27/19 06:00 Reason For Visit: PERFORATED DESCENDING COLON DIVERTICULITIS Discharge Date Discharge Date: 05/01/19 Discharge Diagnosis All Active Problems (Updated 05/01/19 @ 13:07 by Liyah Foster) Acute renal failure (Acute) History of COPD (Acute) Headache (Acute) Diverticulitis of colon with perforation (Acute) Plan of Treatment: Continue with present treatment and follow up plan. Pt is to keep follow up appointment as instructed and take medications as ordered. Discharge Medications Discharge Medications: penicillin G Allergy (Verified 07/27/17 07:56) CONTINUE taking the following medications NK 04/26/19 [History] New Prescriptions ciprofloxacin HCl 500 mg PO BID 5 Days #10 tab 05/01/19 [Rx] metronidazole 500 mg PO TID 5 Days #15 tab 05/01/19 [Rx] Follow up and Referral Follow Up: 1 Week (PCP) 2 Weeks (Dr. Vides ) Discharge Disposition Assessment: Patient stable no acute distress noted at time of discharge. Discharge Disposition: Home
== END 2019-05-01 12:30 | disposition home or self-care (01) | DRG 392 ==
LOC: ER 14:01 → MED/SURG 20:49
PROVIDERS: ADMIT Family Medicine; ATTEND Family Medicine
DX: R51 Headache; N17.9 Acute kidney failure, unspecified; J44.9 Chronic obstructive pulmonary disease, unspecified; K57.20 Diverticulitis of large intestine with perforation and abscess without bleeding
CPT/HCPCS: 36415; 74177; 80053; 81001; 83735; 85025; 90670; 96365; 96374; 99284; A4222; S0030; J0744; J1650; J2270; J2543; J3480; J3490; J7030; J7050; S5010

== ENCOUNTER 2023-09-01 15:04 | Inpatient (IN) ==
--- NOTE | 2023-09-01 15:38 | DR.ABDMALE ---
HPI Time seen Time Seen by Provider: 09/01/23 15:38 PCP Primary Care Physician: nfd Complaint Chief Complaint Doctors Comments: Patient has been having BLQ and LUQ abdl pain since wednesday. Patient has abdl distention that has increased every day.Patient presents because of worsening pain.Patient has had progressively diminished flatus, decreased po intake today. Patient denies:fever,n,v,diarrhea,weakness. Chief Complaint:: patient states wednesday he started having LLQ pain along with chills,fever,diarrhea. Wednesday he felt fine. This morning he woke up with LLQ pain radiating to the left side of his back along with urinary frequency with just a little results. no n/v/d or fever. COVID-19 Coronavirus risk:travel/contact w/high risk person: No Has patient experienced Coronavirus symptoms: No Mode of arrival Mode of Arrival: Ambulatory Timing Onset of Chief Complaint: 09/01/23 PMH PMH Past Medical History: Yes Past Medical History: COPD Past Medical History Comment: diverticulitis Past Surgical History: No Surgical History: No History Family History History of Family Medical Conditions: Yes Family Medical History: Diabetes Mellitus and Hypertension Social History Does patient currently use any type of tobacco product: No Have you used tobacco products in the last 12 months: No Type of Tobacco Use: None Does any household member use tobacco: No Alcohol Use: None Do you use any recreational Drugs:: No Lives With: Alone Lives Where: Home Travel Risk Coronavirus risk:travel/contact w/high risk person: No Has patient experienced Coronavirus symptoms: No Infectious screening In the last 2 months have you had wt loss of >10#?: NO Have you had fever, night sweats or hemotysis?: No Have you traveled outside the country in the last 6 months?: No Isolation: Standard ROS Review of Systems Constitutional: No Symptoms Reported Eyes: No Symptoms Reported ENTM: No Symptoms Reported Respiratoy: No Symptoms Reported Cardiovascular: No Symptoms Reported Gastrointestinal/Abdominal: Abdominal Pain (distention); negative Nausea or Vomiting Genitourinary: No Symptoms Reported Neurological: No Symptoms Reported Musculoskeletal: No Symptoms Reported Integumentary: No Symptoms Reported Hematologic/Lymphatic: No Symptoms Reported Endocrine: No Symptoms Reported Psychiatric: No Symptoms Reported All Other Systems: Reviewed and Negative PE Vital Signs Vital Signs: Temp Pulse Pulse Resp BP BP Pulse Ox 09/01/23 19:31 108 H 96 09/01/23 19:31 139/89 09/01/23 19:30 106 H 97 09/01/23 19:26 106 H 98 09/01/23 19:26 170/94 09/01/23 19:15 99 H 98 09/01/23 19:03 100 H 97 09/01/23 19:07 97 H 18 137/83 97 09/01/23 17:08 16 09/01/23 15:13 98.1 F 115 H 16 140/88 98 O2 Del Method 09/01/23 19:31 09/01/23 19:31 09/01/23 19:30 09/01/23 19:26 09/01/23 19:26 09/01/23 19:15 09/01/23 19:03 09/01/23 19:07 09/01/23 17:08 09/01/23 15:13 Room Air General Limitations: No Limitations General Appearance: Alert and In No Apparent Distress Head Head Exam: Normal Inspection Eyes Eye exam: Normal Appearance ENT ENT Exam: Normal Exam Neck Neck Exam: Normal Inspection Chest Chest Inspection: Normal Inspection Respiratory Respiratory Exam: Normal Lung Sounds Bilat Respiratory Exam: Bilateral: Clear to Auscultation Cardiovascular Cardiovascular Exam: Regular Rate and Normal Rhythm Abdominal Exam Abdominal Exam: Normal Inspection and Normal Bowel Sounds Rectal Rectal Exam: Deferred Back Back Exam: Normal Inspection Extremeties Extremities Exam: Normal Inspection Exam: Male: Deferred Neurologic Neurological Exam: Alert and Oriented X3 Psychiatric Psychiatric Exam: Normal Affect and Normal Mood Skin Skin Exam: Warm, Dry, Intact and Normal Color MDM Differential Diagnosis Differential Diagnosis: Bowel Obstruction, Inflammatory BD and Ischemic Bowel Other differential diagnosis: perforation COURSE Treatment Treatment: Patient has sigmoid diverticulitis with surrounding mesenteric free gas concerning for perforation. Patient's labs were reviewed: C-reactive protein >250, creatinine 1.42, WBC 13.7, UA negative.KUB revealed G-tube gastric placmment. 18:[address] Burris who stated that Dr. Mackenzie could be consulted. Discussed case with Dr. Mackenzie and he accepts patient to his service for further evaluation he would like the patient to receive Levaquin and Flagyl.He received a levaquin dose in the ED.Patient was stable in the ED. ROR Labs Reviewed Laboratory Results Reviewed?: Yes 09/01/23 16:57 09/01/23 16:57 Laboratory: WBC 13.7 X10^3/uL (3.6-10.0) H 09/01/23 16:57 RBC 4.89 X10^6/uL (4.7-6.0) 09/01/23 16:57 Hgb 15.0 g/dL (13.5-18.0) 09/01/23 16:57 Hct 45.3 % (42.0-54.0) 09/01/23 16:57 MCV 92.6 fL (80.0-100.0) 09/01/23 16:57 MCH 30.8 pg (27.0-34.0) 09/01/23 16:57 MCHC 33.2 g/dL (33.0-35.0) 09/01/23 16:57 RDW 13.2 % (11.6-16.5) 09/01/23 16:57 Plt Count 229 X10^3/uL (150.0-450.0) 09/01/23 16:57 MPV 8.0 fL (7.4-11.0) 09/01/23 16:57 Neut % (Auto) 78.9 % (42.0-75.0) H 09/01/23 16:57 Lymph % (Auto) 11.1 % (21.0-51.0) L 09/01/23 16:57 [place] % (Auto) 9.0 % (0.0-13.0) 09/01/23 16:57 Eos % (Auto) 0.2 % (0.9-2.9) L 09/01/23 16:57 Baso % (Auto) 0.8 % (0.2-1.0) 09/01/23 16:57 Neut # (Auto) 10.8 x10^3/uL (2.2-4.8) H 09/01/23 16:57 Lymph # (Auto) 1.5 X10^3/uL (1.3-2.9) 09/01/23 16:57 [place] # (Auto) 1.2 x10^3/uL (0.3-0.8) H 09/01/23 16:57 Eos # (Auto) 0.0 x10^3/uL (0.0-0.2) 09/01/23 16:57 Baso # (Auto) 0.1 X10^3/uL (0.0-0.1) 09/01/23 16:57 Absolute Nucleated RBC 0.0 /100WBC 09/01/23 16:57 Sodium 138 mmol/L (136-145) 09/01/23 16:57 Corrected Sodium TNP 09/01/23 16:57 Potassium 4.0 mmol/L (3.5-5.1) 09/01/23 16:57 Chloride 102 mmol/L (98-107) 09/01/23 16:57 Carbon Dioxide 26.6 mmol/L (21-32) 09/01/23 16:57 BUN 12 mg/dL (7-18) 09/01/23 16:57 Creatinine 1.42 mg/dL (0.70-1.30) H 09/01/23 16:57 Est GFR (MDRD) Af Amer > 60 (>60) 09/01/23 16:57 Est GFR (MDRD) Non-Af 58 (>60) L 09/01/23 16:57 Glucose 103 mg/dL (65-99) H 09/01/23 16:57 Lactic Acid 0.6 mmol/L (0.4-2.0) 09/01/23 17:15 Calcium 8.5 mg/dL (8.5-10.1) 09/01/23 16:57 Corrected Calcium 9.1 mg/dL (8.5-10.1) 09/01/23 16:57 Total Bilirubin 1.40 mg/dL (0.2-1.0) H 09/01/23 16:57 AST 13 Units/L (15-37) L 09/01/23 16:57 ALT 27 Units/L (12-78) 09/01/23 16:57 Alkaline Phosphatase 92 Units/L (46-116) 09/01/23 16:57 C-Reactive Protein > 250.00 mg/L (0-3.0) H 09/01/23 16:57 Total Protein 7.6 g/dL (6.4-8.2) 09/01/23 16:57 Albumin 3.2 g/dL (3.4-5.0) L 09/01/23 16:57 Globulin 4.4 g/dL (2.5-4.5) 09/01/23 16:57 Albumin/Globulin Ratio 0.7 Ratio (1.1-2.1) L 09/01/23 16:57 Amylase 36 Units/L (25-115) 09/01/23 16:57 Lipase 20 Units/L (16-77) 09/01/23 16:57 Specimen Type Clean catch urine 09/01/23 15:21 Urine Color Dark yellow (YELLOW) 09/01/23 15:21 Urine Appearance Clear (CLEAR) 09/01/23 15:21 Urine pH 6.0 (5.0 - 8.0) 09/01/23 15:21 Ur Specific [place] 1.015 (1.000-1.030) 09/01/23 15:21 Urine Protein 3+ (NEGATIVE) 09/01/23 15:21 Urine Glucose (UA) Negative (NEGATIVE) 09/01/23 15:21 Urine Ketones Negative (NEGATIVE) 09/01/23 15:21 Urine Blood 4+ (NEGATIVE) 09/01/23 15:21 Urine Nitrite Negative (NEGATIVE) 09/01/23 15:21 Urine Bilirubin Negative (NEGATIVE) 09/01/23 15:21 Urine Urobilinogen Normal (NORMAL) 09/01/23 15:21 Ur Leukocyte Esterase 1+ (NEGATIVE) 09/01/23 15:21 Urine RBC 5-10 /HPF (0-3) A 09/01/23 15:21 Urine WBC 3-5 /HPF (0-5) 09/01/23 15:21 Ur Squamous Epith Cells Few /HPF (NEGATIVE) 09/01/23 15:21 Urine Bacteria Trace /HPF (NEGATIVE) 09/01/23 15:21 Urine Mucus Few /HPF (NEGATIVE) 09/01/23 15:21 Ur Culture Indicated? No/not indicated 09/01/23 15:21 Opioid Opioid Risk Tool Age (Raza box if 16-45): Yes History of Preadolescent Sexual Abuse: No Total: 1 Total Score Risk Category: Low Risk Copyright: Kana CASTILLO predicting aberrant behaviors Discharge Plan Diagnosis Discharge Problem: Diverticulitis of large intestine with perforation Discharge Plan Patient Disposition: 09 ADMITTED INPATIENT Condition: Stable Prescriptions: No Action [facility] Concerns: Post Hospitalization: new medications and changes needed to prevent readmission or further decline. Pt educated and given instructions on all concerns. Plan of Treatment: Continue with present treatment and follow up plan. Pt is to keep follow up appointment as instructed and take medications as ordered. Orders to Discharge Patient Discharge Orders: Transfer (Routine); Ordered 09/01/23 Ordered By: Susan Regalado Follow ups/Referrals Follow ups/Referrals: NFD,None [Primary Care Provider] - 3 days Instructions Stand Alone Forms: Post Hospital Follow Up Care
[2023-09-01 15:46] LABS: BILIRUBIN,URINE NEGATIVE (NEGATIVE); BLOOD/HEMOGLOBIN,URINE 4+ (NEGATIVE); GLUCOSE, URINE NEGATIVE (NEGATIVE); KETONES,URINE NEGATIVE (NEGATIVE); LEUKOCYTE ESTERASE ,URINE 1+ (NEGATIVE); NITRITES,URINE NEGATIVE (NEGATIVE); PROTEIN,URINE 3+ (NEGATIVE); UROBILINOGEN,URINE NORMAL (NORMAL)
[2023-09-01 16:15] LABS: COLOR,URINE DARK YELLOW (YELLOW)
[2023-09-01 16:16] LABS: APPEARANCE,URINE CLEAR (CLEAR); BACTERIA,URINE TRACE /HPF (NEGATIVE); SQUAMOUS EPITHELIAL CELL,UR FEW /HPF (NEGATIVE)
[2023-09-01] MEDS ORDERED: DILAUDID INJ ONE (17:02)
[2023-09-01] MEDS ORDERED: ZOFRAN INJ 4 MG VIAL ONE (17:02)
[2023-09-01] MEDS: DILAUDID INJ IVP ONE (17:08)
[2023-09-01] MEDS: ZOFRAN INJ 4 MG VIAL IVP ONE (17:09)
[2023-09-01 17:21] LABS: BASOPHILS # (AUTO) 0.1 X10^3/uL (0.0-0.1); BASOPHILS % (AUTO) 0.8 % (0.2-1.0); EOSINOPHILS % (AUTO) 0.2 % (0.9-2.9); HEMATOCRIT 45.3 % (42.0-54.0); LYMPHOCYTES # (AUTO) 1.5 X10^3/uL (1.3-2.9); LYMPHOCYTES % (AUTO) 11.1 % (21.0-51.0); MEAN CORPUSCULAR HEMOGLOBIN 30.8 pg (27.0-34.0); MEAN CORPUSCULAR HGB CONC 33.2 g/dL (33.0-35.0); MEAN CORPUSCULAR VOLUME 92.6 fL (80.0-100.0); MONOCYTES # (AUTO) 1.2 x10^3/uL (0.3-0.8); NEUTROPHILS # (AUTO) 10.8 x10^3/uL (2.2-4.8); NEUTROPHILS % (AUTO) 78.9 % (42.0-75.0); PLATELET COUNT 229 X10^3/uL (150.0-450.0); RED BLOOD COUNT 4.89 X10^6/uL (4.7-6.0); RED CELL DISTRIBUTION WIDTH 13.2 % (11.6-16.5); WHITE BLOOD COUNT 13.7 X10^3/uL (3.6-10.0)
[2023-09-01 17:25] LABS: ALANINE AMINOTRANSFERASE 27 Units/L (12-78); ALBUMIN 3.2 g/dL (3.4-5.0); ALKALINE PHOSPHATASE 92 Units/L (46-116); AMYLASE 36 Units/L (25-115); ASPARTATE AMINO TRANSFERASE 13 Units/L (15-37); BLOOD UREA NITROGEN 12 mg/dL (7-18); CALCIUM 8.5 mg/dL (8.5-10.1); CARBON DIOXIDE 26.6 mmol/L (21-32); CHLORIDE 102 mmol/L (98-107); COR CA(FOR HYPOALB) 9.1 mg/dL (8.5-10.1); CREATININE 1.42 mg/dL (0.70-1.30); GLUCOSE 103 mg/dL (65-99); LIPASE 20 Units/L (16-77); SODIUM 138 mmol/L (136-145); TOTAL PROTEIN 7.6 g/dL (6.4-8.2); eGFR NON BLACK RACES 58 (>60)
[2023-09-01] MEDS ORDERED: OMNIPAQUE 350 mg/mL 100 mL BTL 100 ML ONE (17:43)
--- NOTE | 2023-09-01 18:19 | CT ---
EXAM:ABDCMEN/PELVIS WITH CONHISTORY:PT C/O LLQ PAIN AND DIARRHEA SINCE WEDNESDAY; ABDOMINAL DISTENTION, HX: DIVERTICULITISCOMPARISON:NoneTECHNIQUE:C T of the abdomen and pelvis obtained with IV contrast. Dose reduction techniques including Automated Exposure Control (AEC) and adjustment of mA and kV were utilized.FINDINGS:The visualized portions of the lower thorax demonstrate no acute process.No acute osseous abnormality.The liver, gallbladder, spleen, pancreas, bilateral adrenal glands, and bilateral kidneys demonstrate no acute process.No evidence of bowel obstruction. The appendix is unremarkable. Descending colonic diverticulitis with surrounding subcutaneous free gas.The bladder is unremarkable. No free air or fluid. Nonaneurysmal aorta.IMPRESSION:Acute sigmoid diverticulitis with surrounding mesenteric free gas concerning for perforation. No organized fluid collection or abscess. Surgical consultation recommended.THIS IS AN ELECTRONICALLY VERIFIED FINAL REPORT09/01/2023 6:15 PM - Electronically signed by Boubacar Sarabia MD
[2023-09-01] MEDS: FLAGYL IV PREMIX 500 MG BAG 500 MG/100 ML BAG IV SCH (20:11)
[2023-09-01] MEDS: DILAUDID INJ IVP PRN (20:26)
--- NOTE | 2023-09-01 20:30 | RAD ---
EXAM:KUBHISTORY:NG TUBE PLACEMENT;COMPARISON:No relevant prior studies available.TECHNIQUE:AP supine projection, 4 imagesFINDINGS:Esophagogastric tube tip overlies the upper body of the stomach with the side port at the GE junction. Recommend advancement 8 cm.No gross free air.Lung bases are clear.IMPRESSION:Esophagogastric tube tip overlies the upper body of the stomach with the side port at the GE junction. Recommend advancement 8 cm.THIS IS AN ELECTRONICALLY VERIFIED FINAL REPORT09/01/2023 8:26 PM - Electronically signed by Kang Servin MD
[2023-09-01 21:26] VITALS: BMI 30.7
[2023-09-01] MEDS: LEVAQUIN PREMIX IV 750 MG 750 MG/150 ML BAG IV SCH (21:37)
[2023-09-01] MEDS: LR 1,000 ML IV 1,000 ML IV SCH (21:38)
[2023-09-01] MEDS: FLUARIX QUAD VACC (FOR AGE 6 MONTHS+) IM ONE (22:25)
--- NOTE | 2023-09-01 22:34 | RAD ---
EXAM: KUB HISTORY: NGT TUBE PLACEMENT, ADVANCED 8CM; COMPARISON: September 01, 2023 at 7:32 p.m. TECHNIQUE: AP supine projection, 4 images FINDINGS: Esophagogastric tube tip overlies the body of the stomach. No significant change in the bowel gas pattern. IMPRESSION: Esophagogastric tube tip overlies the body of the stomach. THIS IS AN ELECTRONICALLY VERIFIED FINAL REPORT 09/01/2023 10:31 PM - Electronically signed by Kang Servin MD
[2023-09-02 05:35] LABS: BASOPHILS # (AUTO) 0.1 X10^3/uL (0.0-0.1); BASOPHILS % (AUTO) 0.7 % (0.2-1.0); EOSINOPHILS % (AUTO) 0.4 % (0.9-2.9); HEMATOCRIT 42.3 % (42.0-54.0); HEMOGLOBIN 14.1 g/dL (13.5-18.0); LYMPHOCYTES # (AUTO) 1.6 X10^3/uL (1.3-2.9); MEAN CORPUSCULAR HEMOGLOBIN 30.8 pg (27.0-34.0); MEAN CORPUSCULAR HGB CONC 33.3 g/dL (33.0-35.0); MEAN CORPUSCULAR VOLUME 92.7 fL (80.0-100.0); MEAN PLATELET VOLUME 8.5 fL (7.4-11.0); MONOCYTES # (AUTO) 0.9 x10^3/uL (0.3-0.8); MONOCYTES % (AUTO) 8.1 % (0.0-13.0); NEUTROPHILS % (AUTO) 76.8 % (42.0-75.0); PLATELET COUNT 222 X10^3/uL (150.0-450.0); RED BLOOD COUNT 4.57 X10^6/uL (4.7-6.0); RED CELL DISTRIBUTION WIDTH 13.2 % (11.6-16.5); WHITE BLOOD COUNT 11.7 X10^3/uL (3.6-10.0)
[2023-09-02 05:41] LABS: ALANINE AMINOTRANSFERASE 23 Units/L (12-78); ALBUMIN 2.7 g/dL (3.4-5.0); ALKALINE PHOSPHATASE 85 Units/L (46-116); ASPARTATE AMINO TRANSFERASE 13 Units/L (15-37); BLOOD UREA NITROGEN 13 mg/dL (7-18); CALCIUM 8.3 mg/dL (8.5-10.1); CARBON DIOXIDE 25.7 mmol/L (21-32); CHLORIDE 103 mmol/L (98-107); COR CA(FOR HYPOALB) 9.3 mg/dL (8.5-10.1); CREATININE 1.22 mg/dL (0.70-1.30); GLUCOSE 96 mg/dL (65-99); POTASSIUM 3.8 mmol/L (3.5-5.1); SODIUM 138 mmol/L (136-145); TOTAL PROTEIN 6.9 g/dL (6.4-8.2); eGFR NON BLACK RACES > 60 (>60)
[2023-09-02] MEDS ORDERED: CONSULT PHARMACY - POTASSIUM & MAGNESIUM XX SCH (07:00)
--- NOTE | 2023-09-02 07:56 | RAD ---
EXAM:KUBHISTORY:DiverticulitisCOMPARISON :09/01/2023FINDINGS:There is a nasogastric tube with its tip and side port in the expected position of the stomach abdominal gas pattern is nonspecific and nonobstructive. No abnormal masses or abnormal calcifications are identified. Regional skeleton is intact.IMPRESSION:Unremarkable KUBTHIS IS AN ELECTRONICALLY VERIFIED FINAL REPORT09/02/2023 7:53 AM - Electronically signed by Boubacar Sarabia MD
[2023-09-02] MEDS: REGLAN INJ 10 MG VIAL IVP PRN (08:03)
[2023-09-02] MEDS: CLEOCIN 600 MG IV PREMIX 600 MG/50 ML BAG IV SCH (08:05)
--- NOTE | 2023-09-02 08:15 | DR.PROGNOT ---
HOSPITAL PROGRESS NOTE Progress Note for Day of: Progress Note Date: 09/02/23 Chief Complaint Chief Complaint: Abdominal pain is less today, no nausea no vomiting. Abdominal distention had improved. WBC is 11.7, hemoglobin 14.1, electrolytes and liver function test are normal, normal amylase and lipase. KUB this morning was read as normal, no evidence of free air or bowel obstruction. Past Medical Family Social History Allergies: Allergies amoxicillin Allergy (Verified 09/01/23 20:23) penicillin G Allergy (Verified 09/01/23 20:23) Review Of Systems ROS: No change since H&P Vital Signs Vital Signs: Vital Signs Temperature 98.9 F Pulse Rate [Left] 98 Respiratory Rate 20 Respiratory Rate 20 Blood Pressure [Right Arm] 146/69 Physical Exam Oriented: Normal Eyes: Normal Ear: Normal Nose: Normal Throat: Normal Respiratory: Normal Cardiovascular: Normal GI:Auscultation: Decreased GI: Tenderness: Other (Soft abdomen with left lower quadrant tenderness and only mild rebound tenderness, bowel sounds are hypoactive but present.) Speech Pattern: Clear and Appropriate Laboratory and Diagnostics 09/02/23 04:10 09/02/23 04:10 Labs: Laboratory WBC 11.7 X10^3/uL (3.6-10.0) H 09/02/23 04:10 RBC 4.57 X10^6/uL (4.7-6.0) L 09/02/23 04:10 Hgb 14.1 g/dL (13.5-18.0) 09/02/23 04:10 Hct 42.3 % (42.0-54.0) 09/02/23 04:10 MCV 92.7 fL (80.0-100.0) 09/02/23 04:10 MCH 30.8 pg (27.0-34.0) 09/02/23 04:10 MCHC 33.3 g/dL (33.0-35.0) 09/02/23 04:10 RDW 13.2 % (11.6-16.5) 09/02/23 04:10 Plt Count 222 X10^3/uL (150.0-450.0) 09/02/23 04:10 MPV 8.5 fL (7.4-11.0) 09/02/23 04:10 Neut % (Auto) 76.8 % (42.0-75.0) H 09/02/23 04:10 Lymph % (Auto) 14.0 % (21.0-51.0) L 09/02/23 04:10 [place] % (Auto) 8.1 % (0.0-13.0) 09/02/23 04:10 Eos % (Auto) 0.4 % (0.9-2.9) L 09/02/23 04:10 Baso % (Auto) 0.7 % (0.2-1.0) 09/02/23 04:10 Neut # (Auto) 9.0 x10^3/uL (2.2-4.8) H 09/02/23 04:10 Lymph # (Auto) 1.6 X10^3/uL (1.3-2.9) 09/02/23 04:10 [place] # (Auto) 0.9 x10^3/uL (0.3-0.8) H 09/02/23 04:10 Eos # (Auto) 0.0 x10^3/uL (0.0-0.2) 09/02/23 04:10 Baso # (Auto) 0.1 X10^3/uL (0.0-0.1) 09/02/23 04:10 Absolute Nucleated RBC 0.0 /100WBC 09/02/23 04:10 Sodium 138 mmol/L (136-145) 09/02/23 04:10 Corrected Sodium TNP 09/02/23 04:10 Potassium 3.8 mmol/L (3.5-5.1) 09/02/23 04:10 Chloride 103 mmol/L (98-107) 09/02/23 04:10 Carbon Dioxide 25.7 mmol/L (21-32) 09/02/23 04:10 BUN 13 mg/dL (7-18) 09/02/23 04:10 Creatinine 1.22 mg/dL (0.70-1.30) 09/02/23 04:10 Est GFR (MDRD) Af Amer > 60 (>60) 09/02/23 04:10 Est GFR (MDRD) Non-Af > 60 (>60) 09/02/23 04:10 Glucose 96 mg/dL (65-99) 09/02/23 04:10 Lactic Acid 0.6 mmol/L (0.4-2.0) 09/01/23 17:15 Calcium 8.3 mg/dL (8.5-10.1) L 09/02/23 04:10 Corrected Calcium 9.3 mg/dL (8.5-10.1) 09/02/23 04:10 Magnesium 2.1 mg/dL (2.0-2.9) 09/02/23 04:10 Total Bilirubin 1.30 mg/dL (0.2-1.0) H 09/02/23 04:10 AST 13 Units/L (15-37) L 09/02/23 04:10 ALT 23 Units/L (12-78) 09/02/23 04:10 Alkaline Phosphatase 85 Units/L (46-116) 09/02/23 04:10 C-Reactive Protein > 250.00 mg/L (0-3.0) H 09/01/23 16:57 Total Protein 6.9 g/dL (6.4-8.2) 09/02/23 04:10 Albumin 2.7 g/dL (3.4-5.0) L 09/02/23 04:10 Globulin 4.2 g/dL (2.5-4.5) 09/02/23 04:10 Albumin/Globulin Ratio 0.6 Ratio (1.1-2.1) L 09/02/23 04:10 Amylase 36 Units/L (25-115) 09/01/23 16:57 Lipase 20 Units/L (16-77) 09/01/23 16:57 Specimen Type Clean catch urine 09/01/23 15:21 Urine Color Dark yellow (YELLOW) 09/01/23 15:21 Urine Appearance Clear (CLEAR) 09/01/23 15:21 Urine pH 6.0 (5.0 - 8.0) 09/01/23 15:21 Ur Specific [place] 1.015 (1.000-1.030) 09/01/23 15:21 Urine Protein 3+ (NEGATIVE) 09/01/23 15:21 Urine Glucose (UA) Negative (NEGATIVE) 09/01/23 15:21 Urine Ketones Negative (NEGATIVE) 09/01/23 15:21 Urine Blood 4+ (NEGATIVE) 09/01/23 15:21 Urine Nitrite Negative (NEGATIVE) 09/01/23 15:21 Urine Bilirubin Negative (NEGATIVE) 09/01/23 15:21 Urine Urobilinogen Normal (NORMAL) 09/01/23 15:21 Ur Leukocyte Esterase 1+ (NEGATIVE) 09/01/23 15:21 Urine RBC 5-10 /HPF (0-3) A 09/01/23 15:21 Urine WBC 3-5 /HPF (0-5) 09/01/23 15:21 Ur Squamous Epith Cells Few /HPF (NEGATIVE) 09/01/23 15:21 Urine Bacteria Trace /HPF (NEGATIVE) 09/01/23 15:21 Urine Mucus Few /HPF (NEGATIVE) 09/01/23 15:21 Ur Culture Indicated? No/not indicated 09/01/23 15:21 Assessment and Plan 1: Acute sigmoid diverticulitis with sealed perforation. Same IV antibiotics and will add clindamycin 600 every 8 hours. Keep n.p.o. Will DC the NG tube later on. Problem Patient Problems: Patient Problems (Updated 09/01/23 @ 18:57 by Amilcar Hart) Diverticulitis of colon with perforation (Acute) K57.20
[2023-09-02] MEDS ORDERED: K-DUR TAB 20 MEQ PO SCH (09:00)
[2023-09-02] MEDS: K-RIDER 10 MEQ/100 ML WATER 10 MEQ/100 ML BAG IV SCH (10:53)
[2023-09-02] MEDS: PROTONIX INJ 40 MG VIAL IVP SCH (14:59)
[2023-09-02] MEDS: LR 1,000 ML IV 1,000 ML IV SCH (20:18)
[2023-09-03 05:16] LABS: BASOPHILS % (AUTO) 0.5 % (0.2-1.0); EOSINOPHILS # (AUTO) 0.1 x10^3/uL (0.0-0.2); EOSINOPHILS % (AUTO) 1.3 % (0.9-2.9); HEMATOCRIT 40.4 % (42.0-54.0); HEMOGLOBIN 13.7 g/dL (13.5-18.0); LYMPHOCYTES # (AUTO) 1.1 X10^3/uL (1.3-2.9); LYMPHOCYTES % (AUTO) 13.6 % (21.0-51.0); MEAN CORPUSCULAR HEMOGLOBIN 31.4 pg (27.0-34.0); MEAN CORPUSCULAR VOLUME 92.4 fL (80.0-100.0); MONOCYTES # (AUTO) 0.7 x10^3/uL (0.3-0.8); MONOCYTES % (AUTO) 8.6 % (0.0-13.0); NEUTROPHILS # (AUTO) 6.3 x10^3/uL (2.2-4.8); PLATELET COUNT 255 X10^3/uL (150.0-450.0); RED BLOOD COUNT 4.37 X10^6/uL (4.7-6.0); RED CELL DISTRIBUTION WIDTH 13.3 % (11.6-16.5); WHITE BLOOD COUNT 8.2 X10^3/uL (3.6-10.0)
[2023-09-03 05:34] LABS: ALANINE AMINOTRANSFERASE 20 Units/L (12-78); ALBUMIN 2.2 g/dL (3.4-5.0); ALKALINE PHOSPHATASE 76 Units/L (46-116); ASPARTATE AMINO TRANSFERASE 16 Units/L (15-37); BLOOD UREA NITROGEN 19 mg/dL (7-18); CALCIUM 8.3 mg/dL (8.5-10.1); CARBON DIOXIDE 25.5 mmol/L (21-32); CHLORIDE 103 mmol/L (98-107); COR CA(FOR HYPOALB) 9.7 mg/dL (8.5-10.1); CREATININE 1.15 mg/dL (0.70-1.30); GLUCOSE 83 mg/dL (65-99); POTASSIUM 3.9 mmol/L (3.5-5.1); SODIUM 138 mmol/L (136-145); TOTAL PROTEIN 6.5 g/dL (6.4-8.2); eGFR NON BLACK RACES > 60 (>60)
--- NOTE | 2023-09-03 08:24 | RAD ---
EXAM:KUBHISTORY:DiverticulitisCOMPARISON :09/02/2023FINDINGS:Normal intestinal gas pattern without evidence for obstruction or localized ileus. There is no definite mass, visceral enlargement or pathologic calcification. NG tube tip is in the proximal stomach.IMPRESSION:No acute findings.THIS IS AN ELECTRONICALLY VERIFIED FINAL REPORT09/03/2023 8:21 AM - Electronically signed by Espinoza Thomas MD
[2023-09-03] MEDS: TYLENOL 325 MG TAB PO PRN (11:13)
[2023-09-04 04:50] VITALS: O2SAT 96
[2023-09-04 05:13] LABS: BASOPHILS % (AUTO) 0.4 % (0.2-1.0); EOSINOPHILS # (AUTO) 0.2 x10^3/uL (0.0-0.2); EOSINOPHILS % (AUTO) 2.4 % (0.9-2.9); HEMATOCRIT 40.6 % (42.0-54.0); HEMOGLOBIN 13.8 g/dL (13.5-18.0); LYMPHOCYTES # (AUTO) 1.1 X10^3/uL (1.3-2.9); LYMPHOCYTES % (AUTO) 17.3 % (21.0-51.0); MEAN CORPUSCULAR HEMOGLOBIN 31.2 pg (27.0-34.0); MEAN CORPUSCULAR HGB CONC 33.9 g/dL (33.0-35.0); MEAN CORPUSCULAR VOLUME 91.9 fL (80.0-100.0); MEAN PLATELET VOLUME 7.8 fL (7.4-11.0); MONOCYTES # (AUTO) 0.5 x10^3/uL (0.3-0.8); MONOCYTES % (AUTO) 8.5 % (0.0-13.0); NEUTROPHILS # (AUTO) 4.5 x10^3/uL (2.2-4.8); NEUTROPHILS % (AUTO) 71.4 % (42.0-75.0); PLATELET COUNT 286 X10^3/uL (150.0-450.0); RED BLOOD COUNT 4.42 X10^6/uL (4.7-6.0); RED CELL DISTRIBUTION WIDTH 13.4 % (11.6-16.5); WHITE BLOOD COUNT 6.4 X10^3/uL (3.6-10.0)
[2023-09-04 05:30] LABS: ALANINE AMINOTRANSFERASE 19 Units/L (12-78); ALBUMIN 2.3 g/dL (3.4-5.0); ALKALINE PHOSPHATASE 69 Units/L (46-116); ASPARTATE AMINO TRANSFERASE 13 Units/L (15-37); BLOOD UREA NITROGEN 13 mg/dL (7-18); CALCIUM 8.3 mg/dL (8.5-10.1); CARBON DIOXIDE 24.9 mmol/L (21-32); CHLORIDE 107 mmol/L (98-107); COR CA(FOR HYPOALB) 9.7 mg/dL (8.5-10.1); CREATININE 1.13 mg/dL (0.70-1.30); GLUCOSE 100 mg/dL (65-99); POTASSIUM 3.6 mmol/L (3.5-5.1); SODIUM 141 mmol/L (136-145); TOTAL PROTEIN 6.3 g/dL (6.4-8.2); eGFR NON BLACK RACES > 60 (>60)
[2023-09-04] MEDS ORDERED: CONSULT PHARMACY - POTASSIUM & MAGNESIUM XX SCH (06:00)
[2023-09-04 08:17] VITALS: BP 121/71; PULSE 81; RESP 18; TEMP 98.2
[2023-09-04] MEDS ORDERED: MICRO K EXTEN CAP 10 MEQ PO SCH (09:00)
--- NOTE | 2023-09-04 09:30 | DR.PROGNOT ---
HOSPITAL PROGRESS NOTE Progress Note for Day of: Progress Note Date: 09/03/23 Chief Complaint Chief Complaint: Abdominal pain is less today, no nausea no vomiting. Abdominal distention had improved. WBC is 11.7, hemoglobin 14.1, electrolytes and liver function test are normal, normal amylase and lipase. KUB this morning was read as normal, no evidence of free air or bowel obstruction. Past Medical Family Social History Allergies: Allergies amoxicillin Allergy (Verified 09/01/23 20:23) penicillin G Allergy (Verified 09/01/23 20:23) Review Of Systems ROS: No change since H&P Vital Signs Vital Signs: Vital Signs Temperature 98.2 F Temperature 98.3 F Pulse Rate [Left] 81 Pulse Rate [Left] 63 Respiratory Rate 18 Respiratory Rate 20 Blood Pressure [Left Arm] 121/71 Blood Pressure [Left Arm] 112/64 O2 Sat by Pulse Oximetry 96 O2 Sat by Pulse Oximetry 96 Physical Exam Oriented: Normal Eyes: Normal Ear: Normal Nose: Normal Throat: Normal Respiratory: Normal Cardiovascular: Normal GI:Auscultation: Decreased GI: Tenderness: Other (Soft abdomen with left lower quadrant tenderness and only mild rebound tenderness, bowel sounds are hypoactive but present.) Speech Pattern: Clear and Appropriate Laboratory and Diagnostics 09/04/23 04:05 09/04/23 04:05 Labs: Laboratory WBC 6.4 X10^3/uL (3.6-10.0) 09/04/23 04:05 RBC 4.42 X10^6/uL (4.7-6.0) L 09/04/23 04:05 Hgb 13.8 g/dL (13.5-18.0) 09/04/23 04:05 Hct 40.6 % (42.0-54.0) L 09/04/23 04:05 MCV 91.9 fL (80.0-100.0) 09/04/23 04:05 MCH 31.2 pg (27.0-34.0) 09/04/23 04:05 MCHC 33.9 g/dL (33.0-35.0) 09/04/23 04:05 RDW 13.4 % (11.6-16.5) 09/04/23 04:05 Plt Count 286 X10^3/uL (150.0-450.0) 09/04/23 04:05 MPV 7.8 fL (7.4-11.0) 09/04/23 04:05 Neut % (Auto) 71.4 % (42.0-75.0) 09/04/23 04:05 Lymph % (Auto) 17.3 % (21.0-51.0) L 09/04/23 04:05 [place] % (Auto) 8.5 % (0.0-13.0) 09/04/23 04:05 Eos % (Auto) 2.4 % (0.9-2.9) 09/04/23 04:05 Baso % (Auto) 0.4 % (0.2-1.0) 09/04/23 04:05 Neut # (Auto) 4.5 x10^3/uL (2.2-4.8) 09/04/23 04:05 Lymph # (Auto) 1.1 X10^3/uL (1.3-2.9) L 09/04/23 04:05 [place] # (Auto) 0.5 x10^3/uL (0.3-0.8) 09/04/23 04:05 Eos # (Auto) 0.2 x10^3/uL (0.0-0.2) 09/04/23 04:05 Baso # (Auto) 0.0 X10^3/uL (0.0-0.1) 09/04/23 04:05 Absolute Nucleated RBC 0.0 /100WBC 09/04/23 04:05 Sodium 141 mmol/L (136-145) 09/04/23 04:05 Corrected Sodium TNP 09/04/23 04:05 Potassium 3.6 mmol/L (3.5-5.1) 09/04/23 04:05 Chloride 107 mmol/L (98-107) 09/04/23 04:05 Carbon Dioxide 24.9 mmol/L (21-32) 09/04/23 04:05 BUN 13 mg/dL (7-18) 09/04/23 04:05 Creatinine 1.13 mg/dL (0.70-1.30) 09/04/23 04:05 Est GFR (MDRD) Af Amer > 60 (>60) 09/04/23 04:05 Est GFR (MDRD) Non-Af > 60 (>60) 09/04/23 04:05 Glucose 100 mg/dL (65-99) H 09/04/23 04:05 Lactic Acid 0.6 mmol/L (0.4-2.0) 09/01/23 17:15 Calcium 8.3 mg/dL (8.5-10.1) L 09/04/23 04:05 Corrected Calcium 9.7 mg/dL (8.5-10.1) 09/04/23 04:05 Magnesium 2.1 mg/dL (2.0-2.9) 09/02/23 04:10 Total Bilirubin 0.50 mg/dL (0.2-1.0) 09/04/23 04:05 AST 13 Units/L (15-37) L 09/04/23 04:05 ALT 19 Units/L (12-78) 09/04/23 04:05 Alkaline Phosphatase 69 Units/L (46-116) 09/04/23 04:05 C-Reactive Protein > 250.00 mg/L (0-3.0) H 09/01/23 16:57 Total Protein 6.3 g/dL (6.4-8.2) L 09/04/23 04:05 Albumin 2.3 g/dL (3.4-5.0) L 09/04/23 04:05 Globulin 4.0 g/dL (2.5-4.5) 09/04/23 04:05 Albumin/Globulin Ratio 0.6 Ratio (1.1-2.1) L 09/04/23 04:05 Amylase 36 Units/L (25-115) 09/01/23 16:57 Lipase 20 Units/L (16-77) 09/01/23 16:57 Specimen Type Clean catch urine 09/01/23 15:21 Urine Color Dark yellow (YELLOW) 09/01/23 15:21 Urine Appearance Clear (CLEAR) 09/01/23 15:21 Urine pH 6.0 (5.0 - 8.0) 09/01/23 15:21 Ur Specific [place] 1.015 (1.000-1.030) 09/01/23 15:21 Urine Protein 3+ (NEGATIVE) 09/01/23 15:21 Urine Glucose (UA) Negative (NEGATIVE) 09/01/23 15:21 Urine Ketones Negative (NEGATIVE) 09/01/23 15:21 Urine Blood 4+ (NEGATIVE) 09/01/23 15:21 Urine Nitrite Negative (NEGATIVE) 09/01/23 15:21 Urine Bilirubin Negative (NEGATIVE) 09/01/23 15:21 Urine Urobilinogen Normal (NORMAL) 09/01/23 15:21 Ur Leukocyte Esterase 1+ (NEGATIVE) 09/01/23 15:21 Urine RBC 5-10 /HPF (0-3) A 09/01/23 15:21 Urine WBC 3-5 /HPF (0-5) 09/01/23 15:21 Ur Squamous Epith Cells Few /HPF (NEGATIVE) 09/01/23 15:21 Urine Bacteria Trace /HPF (NEGATIVE) 09/01/23 15:21 Urine Mucus Few /HPF (NEGATIVE) 09/01/23 15:21 Ur Culture Indicated? No/not indicated 09/01/23 15:21 Assessment and Plan 1: Acute sigmoid diverticulitis with sealed perforation. Same IV antibiotics and will add clindamycin 600 every 8 hours. on clear liquid .. Problem Patient Problems: Patient Problems (Updated 09/01/23 @ 18:57 by Amilcar Hart) Diverticulitis of colon with perforation (Acute) K57.20
== END 2023-09-04 09:15 | disposition home or self-care (01) | DRG 392 ==
LOC: ER 15:04 → ICU 19:46
PROVIDERS: ADMIT Surgery; ATTEND Surgery
DX: R79.82 Elevated C-reactive protein (CRP); J44.9 Chronic obstructive pulmonary disease, unspecified; R10.84 Generalized abdominal pain; K57.20 Diverticulitis of large intestine with perforation and abscess without bleeding; Z87.11 Personal history of peptic ulcer disease